=== PATIENT | male | born 1960 | race Two or more races ===

== ENCOUNTER 2020-02-29 08:23 | Outpatient (REF) | payer OTHER, SELFPAY ==
--- NOTE | 2020-02-29 08:31 | XR_ITS ---
EXAMINATION: XR SHOULDER, LEFT CLINICAL INFORMATION: Left shoulder pain. COMPARISON: None TECHNIQUE: AP external rotation, Grashey, scapular Y, and axillary views of the left shoulder. FINDINGS: There is no evidence of acute fracture or dislocation of the left shoulder. There is some mild spurring about the humeral head site of insertion of the supraspinatus tendon with question some degree of calcific tendinitis. Mild spurring about the glenohumeral joint present. No widening of the coracoid clavicular space is seen. There is minimal spurring of the acromioclavicular joint seen and no significant acromial spur is appreciated. XR/XR shoulder LT min 2V IMPRESSION: No significant acromial spur identified. Mild degenerative change as described.
== END 2020-02-29 08:24 | disposition home or self-care (01) ==
LOC: HO.XRAY 08:23
PROVIDERS: PCP Internal Medicine; Visit Provider Internal Medicine
DX: M25.512 Pain in left shoulder (principal)
CPT/HCPCS: 73030

== ENCOUNTER → 2020-03-23 10:26 | Outpatient (BNVA) | payer OTHER, SELFPAY | PROVIDERS: PCP Internal Medicine; Visit Provider Physician Assistant | DX: M75.42 Impingement syndrome of left shoulder (principal) | CPT/HCPCS: 20600; 20610; 99202; J1040 ==

== ENCOUNTER 2020-04-13 16:21 | Outpatient (REF) | payer OTHER, SELFPAY | END 2020-04-13 16:22 | disposition home or self-care (01) | LOC: HO.LAB 16:21 | PROVIDERS: Visit Provider Internal Medicine | DX: Z20.822 Contact with and (suspected) exposure to COVID-19 (principal) | CPT/HCPCS: 36415; C9803; U0003; U0005 ==

== ENCOUNTER 2020-04-15 18:41 | Outpatient (REF) | payer OTHER, SELFPAY ==
--- NOTE | ~2020-04-15 | MR_ITS ---
EXAMINATION: MR SHOULDER WITHOUT CONTRAST, LEFT CLINICAL INFORMATION: Patient reports left shoulder pain. COMPARISON: X-ray of the left shoulder February 29, 2020 TECHNIQUE: MRI of the left shoulder was performed without contrast and high field MRI scanner FINDINGS: There is a focal small intrasubstance longitudinal partial tear of the anterior supraspinatus tendon. The tear measures 9 mm transverse and 11 mm AP. See coronal image 11 series 6 and sagittal image 5 series 3. There is mild heterogeneity of the remaining tendon compatible with tendinosis and perhaps additional small areas of partial tearing but no additional measurable tendon defect. MUSCLE: Normal. The remaining rotator cuff muscles and tendons are normal. BICEPS: Intact. CORACOACROMIAL ARCH: There is [id number] hypertrophic osteoarthritis of the acromioclavicular joint. There is concavity of the undersurface of the acromion without subacromial spur. SUBACROMIAL SUBDELTOID BURSA: Normal. LABRUM/CAPSULE: Normal. ARTICULAR CARTILAGE/MARROW: The articular cartilage is normal. There is clustered enthesopathic cystic change in the greater tuberosity posteriorly. No joint effusion. MR/MR shoulder LT wo con IMPRESSION: 1. Small partial tear of the insertion of the anterior supraspinatus. Additional mild generalized abnormality in the supraspinatus compatible with tendinosis and/or additional small areas of partial tearing but no additional measurable defect. 2. [id number] arthrosis of the acromioclavicular joint.
== END 2020-04-15 18:42 | disposition home or self-care (01) ==
LOC: HO.MRI 18:41
PROVIDERS: Visit Provider Physician Assistant
DX: S46.009A Unspecified injury of muscle(s) and tendon(s) of the rotator cuff of unspecified shoulder, initial encounter (principal)
CPT/HCPCS: 73221

== ENCOUNTER → 2020-04-22 12:23 | Outpatient (BNVA) | payer OTHER, SELFPAY | PROVIDERS: PCP Internal Medicine; Visit Provider Physician Assistant | DX: M75.102 Unspecified rotator cuff tear or rupture of left shoulder, not specified as traumatic (principal); M12.812 Other specific arthropathies, not elsewhere classified, left shoulder | CPT/HCPCS: 99212 ==

== ENCOUNTER 2020-05-11 11:00 | Outpatient (RCR) | payer OTHER, SELFPAY ==
--- NOTE | 2020-05-05 13:57 | MHC.PT.DC ---
[facility] [place] Office [place] Office [place] Office [address] [place] [address] [phone] F: [phone] F: [phone] F: [phone] F: [phone] Physical Therapy Discharge Report Diagnosis: rotator cuff tear or rupture of L shoulder Date of Surgery: N/A Date of Evaluation: 05/05/20 Date of Discharge: Treatments to Date: 1 Cancellations to Date: 0 No Shows to Date: 0 Discharge Status: Discharge Summary: pt had poor tolerance of L cane AAROM and would benefit from towel slides instead as he had less pain. pt overall not very motivated for PT as he is looking for quick fix. Spent time educating pt that he does have a small tear and how his shoulder anatomy is going to affect his symptoms. He was told to avoid strenuous activity for now and to focus on only the exercises provided from PT. pt's skin grossly intact to light touch. pt was educated regarding purpose, wear, maintenance, and removal of ktape. Protocol is in chart. pt presents w/ MRI (+) for small tear of supraspinatus muscle. pt presents to physical therapy with pain, decreased range of motion, decreased strength, impaired functional mobility, and impaired postural awareness. pt is a good candidate for skilled PT due to age, potential remediation of impairments, typical disease/condition progression and prognosis, comorbidities, and motivation. pt would benefit from tailored strengthening and stretching exercise program, functional training, postural re-training, neuromuscular re-education, modalities as needed for pain, and equipment safety demonstration. Electronically signed by: Juana Diego PT, DPT Please sign and return to therapist. Thank you for your referral.
--- NOTE | 2020-05-11 11:23 | MHC.PT.DC ---
[facility] [place] Office [place] Office [place] Office [address] [place] 140 [facility] [phone] F: [phone] F: [phone] F: [phone] F: [phone] Physical Therapy Discharge Report Diagnosis: rotator cuff tear or rupture of L shoulder Date of Surgery: N/A Date of Evaluation: 05/05/20 Date of Discharge: 05/11/20 Treatments to Date: 2 Cancellations to Date: 0 No Shows to Date: 0 Discharge Status: Discharge Summary: The patient came in today and stated he is in too much pain and does not want to continue with physical therapy. He has only attended the evaluation and one treatment session. He currently wants to pursue surgery. I educated the patient to contact orthopedics to discuss he other potential pain management options. He is discharged from this physical therapy plan of care. Electronically signed by: Juana Diego PT, DPT Please sign and return to therapist. Thank you for your referral.
== END 2020-05-11 11:24 | disposition other institution (70) ==
LOC: HO.PT 11:00
PROVIDERS: PCP Internal Medicine; Visit Provider Physician Assistant
DX: M75.102 Unspecified rotator cuff tear or rupture of left shoulder, not specified as traumatic (principal); M12.812 Other specific arthropathies, not elsewhere classified, left shoulder
CPT/HCPCS: 97110; 97140; 97161

== ENCOUNTER → 2020-05-20 09:55 | Outpatient (BNVA) | payer OTHER, SELFPAY | PROVIDERS: PCP Internal Medicine; Visit Provider Physician Assistant | DX: M75.102 Unspecified rotator cuff tear or rupture of left shoulder, not specified as traumatic (principal); M12.812 Other specific arthropathies, not elsewhere classified, left shoulder | CPT/HCPCS: 99212 ==

== ENCOUNTER → 2020-05-31 12:45 | Outpatient (BNVA) | payer OTHER, SELFPAY | PROVIDERS: PCP Internal Medicine; Visit Provider Internal Medicine | DX: Z01.810 Encounter for preprocedural cardiovascular examination (principal); I25.10 Atherosclerotic heart disease of native coronary artery without angina pectoris; I10 Essential (primary) hypertension | CPT/HCPCS: 93005; 99202 ==

== ENCOUNTER 2020-06-15 08:10 | Day surgery (SDC) | payer OTHER, SELFPAY ==
[2020-06-09 14:13] VITALS: BMI 34.8
--- NOTE | 2020-06-14 10:12 | HO.ANESPROP2 ---
Documented by User: Nivia Jain 06/14/20 10:22 HPI - Anesthesia Eval Consult details Narrative: 60yo M for Left Shoulder Arthroscopy Cardiac cleared at [facility]. Continue ASA periop (stent) PMFSH Active Problems Active Problems: All Active Problems (Updated 06/09/20 @ 14:15 by Kat Saenz) Impingement syndrome, shoulder, left (Acute) Rotator cuff tear arthropathy of left shoulder (Acute) Preoperative cardiovascular examination (Acute) Essential hypertension (Acute) Atherosclerotic cardiovascular disease (Acute) Past Medical History Medical History (Updated 06/09/20 @ 14:15 by Kat Saenz) Atherosclerotic cardiovascular disease Essential hypertension Hx of retained foreign body fully removed Hypercholesteremia Hypertension Pre-diabetes Family History Family History (Updated 05/31/20 @ 13:10 by CONSTANCE Ramirez) Father History of heart disease Mother History of heart disease Surgical History Surgical History (Updated 06/09/20 @ 14:11 by Kat Saenz) H/O colonoscopy History of cardiac catheterization (~04/21/18) History of heart artery stent Hx of lymph node biopsy Social History Social History (Updated 05/31/20 @ 13:11 by CONSTANCE Ramirez) Smoking Status: Current every day smoker Packs Per Day: 0.5 Cigarettes Per Day: 6 Use of substances other than those prescribed or required for medical reasons: No Advance Directives: No Advance Directives Information Provided: Yes Current occupational status: unemployed Current occupation: Right Handed Meds Allergies Allergy/AdvReac Type Severity Reaction Status Date / Time Iodinated Contrast Media Allergy Mild HIVES Verified 06/09/20 14:12 [CONTRAST, IV] cimetidine AdvReac Intermediate VOMITING Verified 06/09/20 14:12 Home Medications Medication Instructions Recorded Confirmed Last Taken Type amlodipine 5 mg tablet 5 mg PO DAILY 05/31/20 06/09/20 06/15/20 History aspirin 81 mg tablet,delayed 81 mg PO DAILY 05/31/20 06/09/20 06/09/20 History release atorvastatin 80 mg tablet 80 mg PO DAILY 05/31/20 06/09/20 Unknown History lisinopril 10 mg tablet 10 mg PO DAILY 05/31/20 06/09/20 Unknown History metoprolol tartrate 50 mg tablet 50 mg PO BID 05/31/20 06/09/20 06/15/20 History Exam Exam Date and Time: June 14, 2020 1012 Height,Weight and Vital Signs: Height 5 ft 4 in Weight 92 kg Narrative Narrative: EKG 05/2020: sinus rhythm at 65/Min; nonspecific T-wave changes in the lateral leads. Cardiac catheterization 2019: 80% distal RCA stenosis that was inside the prior bare metal stent; status post stenting with PAU; nonobstructive disease in LAD and circumflex. Echocardiogram 2019: LVEF 60-65%; [id number] concentric left ventricular hypertrophy; mild mitral regurgitation; mild tricuspid regurgitation Assessment and Plan Assessment Anesthesia Assessment: Chart Reviewed Documented by User: Geovani Fuchs MD 06/15/20 09:43 PMFSH Past Medical History Medical History (Updated 06/09/20 @ 14:15 by Kat Saenz) Atherosclerotic cardiovascular disease Essential hypertension Hx of retained foreign body fully removed Hypercholesteremia Hypertension Pre-diabetes Family History Family History (Updated 05/31/20 @ 13:10 by CONSTANCE Ramirez) Father History of heart disease Mother History of heart disease Surgical History Surgical History (Updated 06/09/20 @ 14:11 by Kat Saenz) H/O colonoscopy History of cardiac catheterization (~04/21/18) History of heart artery stent Hx of lymph node biopsy Social History Social History (Updated 05/31/20 @ 13:11 by CONSTANCE Ramirez) Smoking Status: Current every day smoker Packs Per Day: 0.5 Cigarettes Per Day: 6 Use of substances other than those prescribed or required for medical reasons: No Advance Directives: No Advance Directives Information Provided: Yes Current occupational status: unemployed Current occupation: Right Handed Meds Allergies Allergy/AdvReac Type Severity Reaction Status Date / Time Iodinated Contrast Media Allergy Mild HIVES Verified 06/09/20 14:12 [CONTRAST, IV] cimetidine AdvReac Intermediate VOMITING Verified 06/09/20 14:12 Home Medications Medication Instructions Recorded Confirmed Last Taken Type amlodipine 5 mg tablet 5 mg PO DAILY 05/31/20 06/09/20 06/15/20 History aspirin 81 mg tablet,delayed 81 mg PO DAILY 05/31/20 06/09/20 06/09/20 History release atorvastatin 80 mg tablet 80 mg PO DAILY 05/31/20 06/09/20 Unknown History lisinopril 10 mg tablet 10 mg PO DAILY 05/31/20 06/09/20 Unknown History metoprolol tartrate 50 mg tablet 50 mg PO BID 05/31/20 06/09/20 06/15/20 History Exam Airway Mallampati Class: II TM Dist: >3cm Neck ROM: Full Loose/Missing/Broken Teeth: No Heart: RRR, sinus carlos, TWI Lungs: NL Assessment and Plan Assessment Anesthesia Assessment: Anesthesia Plan Discussed, Smoking Cess. Discussed and Chart Reviewed Final Anesthetic Review NPO: Yes ASA Class: III Final Preanesthetic Review: No Changes in Pt Med Stat, Meds/Allgs Chart Reviewed, Consent Obtained/Reviewed and Anes Risks/Benef Reviewed Patient Risk: High Procedure Risk: Intermediate Anesthetic Plan Anesthetic Plan: GA and Regional Block Disposition: Standard PACU
[2020-06-15] VITALS (15 sets, daily range): BP systolic 90–148; BP diastolic 63–86; PULSE 57–80; RESP 16–19; TEMP 36.3–36.6; O2SAT 92–98
[2020-06-15] MEDS: Albuterol Sulfate (0.083%) 2.5 MG/3 ML VIAL.NEB INHALE (15:47)
[2020-06-15] MEDS: oxyCODONE HCl Immed Release 5 MG TABLET PO (15:50)
--- NOTE | 2020-06-15 16:43 | PC.NURSE ---
1630 ANESTH CLEARED FOR DC PT MONITORS DCD IVF DCD EARLIER, PT DRESSED W RN ASST IN BS CHAIR, CONT W DC INSTRUCTIONS RE IMMOBILIZER, IV DCD.
--- NOTE | 2020-06-20 16:30 | PM.OP ---
Brief Operative Note Date of Service: 06/20/20 Pre-op diagnosis: left shoulder rtc tear left SLAP tear Post-op diagnosis: same Procedure: Left rtc repair left biceps tenotomy Implants: [employer]as [employer] nephew helacoil x2 Surgeon: Naeem Almonte MD Anesthesia: GETA and regional Estimated blood loss (mL): 5 IV fluids (mL): 800 Pathology: none sent Condition: stable Disposition: PACU
--- NOTE | 2020-06-20 16:33 | W.PM.OPN ---
Operative Note Operative Note Date of Service: 06/15/20 Narrative: Pre-op diagnosis: left shoulder rtc tear left SLAP tear Post-op diagnosis: same Procedure: Left rtc repair left biceps tenotomy Implants: [employer] nephew helacoil x2 Surgeon: Naeem Almonte MD Anesthesia: GETA and regional Estimated blood loss (mL): 5 IV fluids (mL): 800 Pathology: none sent Condition: stable Disposition: PACU Procedure in detail: Patient was brought to the operating room and placed the the beach chair position. All bony prominences were well padded and he was prepped and draped in standard sterile fashion. A time out was called to identify proper site, proper procedure and proper surgeon. IV antibiotics per weight were administered. I began by making a posterolateral stab incision with a 15 blade. A blunt trochar was placed into the glenohumeral joint and IO insufflated the joint with saline and a 30 degree arthroscope was placed. I established an outside- in anterior portal just distal to the biceps tendon. I then began my inspection of the glenohumeral joint. There was a small central glenoid cartilage wear and otherwsie no articular cartilage abnormalities. there was a Type 1 SLAP tear with 75 % of the biceps torn. This was tenotomized and the anterior labrum was debrided. There was undersurface fraying of the supraspinatus. I then removed the trochar and entered the subacromial space. A direct lateral portal was then established and I performed a bursectomy. The cuff was then examined. There was a high grade partial tear of the supraspinatus. This was taken down and there was a full-thickness tear of the supraspinatus. I used a shaver to debride this down to stable edges and then a bur to bur down the footprint. This was a small tear approximately 8 mm in diameter with no retraction. Therefore I placed a suture tape and 2 additional looped sutures through the cuff and reapproximated this to the footprint. I did use 2 anchors laterally to do this and had excellent reproduction of the normal anatomy. I then performed a 5 mm subacromial decompression and took my final pictures. I took the shoulder through range of motion was happy with the stability of the repair. There were no other abnormalities appreciable. I removed all instrumentation and closed the portals with nylon. Patient placed in sterile dressing extubated brought to recovery room in stable condition there were no known complications.
== END 2020-06-15 11:00 | disposition home or self-care (01) ==
PROVIDERS: PCP Internal Medicine; Visit Provider Orthopaedic Surgery
PROC: (CPT 29805; principal; 2020-06-15 10:40)
DX: M75.102 Unspecified rotator cuff tear or rupture of left shoulder, not specified as traumatic (principal); S43.432A Superior glenoid labrum lesion of left shoulder, initial encounter; I10 Essential (primary) hypertension; I25.10 Atherosclerotic heart disease of native coronary artery without angina pectoris; F17.200 Nicotine dependence, unspecified, uncomplicated; I25.2 Old myocardial infarction; Z79.82 Long term (current) use of aspirin; Z79.899 Other long term (current) drug therapy; Z95.5 Presence of coronary angioplasty implant and graft; X58.XXXA Exposure to other specified factors, initial encounter; Y93.9 Activity, unspecified; Y92.9 Unspecified place or not applicable; Y99.9 Unspecified external cause status
CPT/HCPCS: 29827; 29826; C1713; J0171; J0330; J0690; J1100; J2250; J2405; J3010

== ENCOUNTER → 2020-06-30 12:39 | Outpatient (BNVA) | payer OTHER, SELFPAY | PROVIDERS: PCP Internal Medicine; Visit Provider Physician Assistant | DX: M75.102 Unspecified rotator cuff tear or rupture of left shoulder, not specified as traumatic (principal); M12.812 Other specific arthropathies, not elsewhere classified, left shoulder; Z98.890 Other specified postprocedural states | CPT/HCPCS: 99212 ==

== ENCOUNTER → 2020-07-28 10:28 | Outpatient (BNVA) | payer OTHER, SELFPAY | PROVIDERS: PCP Internal Medicine; Visit Provider Physician Assistant | DX: Z47.89 Encounter for other orthopedic aftercare (principal) | CPT/HCPCS: 99212 ==

== ENCOUNTER → 2020-08-15 13:18 | Outpatient (BNVA) | payer OTHER, SELFPAY | PROVIDERS: PCP Internal Medicine; Visit Provider Physician Assistant | DX: Z98.890 Other specified postprocedural states (principal) | CPT/HCPCS: 99212 ==

== ENCOUNTER 2020-09-15 09:00 | Outpatient (RCR) | payer OTHER, SELFPAY ==
--- NOTE | 2020-07-12 16:09 | MHC.PT.EP ---
[facility] [place] Office [place] Office [place] Office [address] [place] [address] [phone] F: [phone] F: [phone] F: [phone] F: [phone] Physical Therapy Plan of Care Date of Evaluation: Date of Surgery: 06/15/20 Diagnosis: LEFT ROTATOR CUFF REPAIR Assessment: ANTONIA PRESENTS S/P RC REPAIR 06/15/20 AND NOW PRESENTS TO THERAPY FOR REHAB. UPON EXAM HE DEMONSTRATES THE EXPECTED IMPAIRMENTS OF DECREASED SHOULDER ROM AND STRENGTH, ALTERED POSTURE AND POSITIONING, DECREASED SOFT TISSUE MOBILITY, INCREASED EDEMA AND PAIN. FUNCTIONAL LIMITATIONS INCLUDE INABILITY TO PERFORM HOMEMAKING AND SELF CARE TASKS USING INVOLVED EXTREMITY, INABILITY TO PERFORM LIFTING REACHING AND CARRYING, DECREASED ABILITY TO PARTICIPATE IN RECREATIONAL AND FITNESS TASKS, DISRUPTED SLEEP Frequency and Duration: The patient will be seen 2XWEEK FOR 4 WEEKS Short Term Goals: INITIATE HEP AND DEMONSTRATE EVIDENCE OF LEARNING IN 2 VISITS Military Technician Goals: Full, pain free ROM in 8 weeks Full UE strength, pain free in 8 weeks To perform computer and work tasks without restriction and pain no greater than 2/[address] at minimum of 5# into cabinet at shoulder height in 5 weeks Treatment Plan: Modalities to reduce pain, spasms and effusion. Manual therapy to restore motion and function. Therapeutic exercise to improve strength and flexibility. Neuromuscular re-education for posture and balance. Therapeutic activities to return to functional activities of daily living. Electronically signed by: TONI PENA PT, DPT Please sign and return to therapist. Thank you for your referral.
--- NOTE | 2020-10-19 12:52 | MHC.PT.DC ---
[facility] [place] Office [place] Office [place] Office [address] [place] 140 [facility] [phone] F: [phone] F: [phone] F: [phone] F: [phone] Physical Therapy Discharge Report Diagnosis: LEFT ROTATOR CUFF REPAIR Date of Surgery: 06/15/20 Date of Evaluation: 07/12/20 Date of Discharge: 09/27/20 Treatments to Date: 17 Cancellations to Date: 0 No Shows to Date: 0 Discharge Status: Achieved Goals Improved Function Independent with HEP Discharge Summary: Logan has made excellent progress he was on hold until MD follow up and is DCed at this time. Electronically signed by: Kalyn Valle PT,DPT Please sign and return to therapist. Thank you for your referral.
== END 2020-10-19 12:54 | disposition home or self-care (01) ==
LOC: HO.PT 09:00
PROVIDERS: Visit Provider Physician Assistant
DX: M75.102 Unspecified rotator cuff tear or rupture of left shoulder, not specified as traumatic (principal); M12.812 Other specific arthropathies, not elsewhere classified, left shoulder
CPT/HCPCS: 97110; 97140; 97161; 97530

== ENCOUNTER → 2020-09-26 09:15 | Outpatient (BNVA) | payer OTHER, SELFPAY | PROVIDERS: Visit Provider Physician Assistant | DX: Z98.890 Other specified postprocedural states (principal) | CPT/HCPCS: 99212 ==

== ENCOUNTER → 2020-11-07 09:14 | Outpatient (BNVA) | payer OTHER, SELFPAY | PROVIDERS: Visit Provider Orthopaedic Surgery | DX: Z98.890 Other specified postprocedural states (principal) | CPT/HCPCS: 99212 ==

== ENCOUNTER 2021-01-05 10:47 | Outpatient (REF) | payer OTHER, SELFPAY ==
[2021-01-05 11:04] LABS: MANUAL DIFF FLAG NO
[2021-01-05 11:25] LABS: Basophils Percent Auto 0.3 % (0-2); Eosinophils Absolute Auto 0.2 X10*3/uL (0.0-0.4); Eosinophils Percent Auto 3.5 % (0-4); Hematocrit 42.5 % (42-52); Hemoglobin 14.8 g/dl (14.0-18.0); Imm Gran Abs Auto 0.03 X10*3/uL (0.00-0.03); Imm Gran Pct Auto 0.4 % (0.0-0.4); Lymphocytes Absolute Auto 2.6 X10*3/uL (1.2-4.9); Lymphocytes Percent Auto 37.9 % (20-40); Mean Corpuscular HGB Conc 34.8 g/dl (31.0-36.0); Mean Corpuscular Hemoglobin 34.4 pg (27.0-33.0); Mean Corpuscular Volume 98.8 fL (80-98); Mean Platelet Volume 9.7 fL (9.4-12.4); Monocytes Absolute Auto 0.6 X10*3/uL (0.1-1.2); Monocytes Percent Auto 8.3 % (2-11); Neutrophils Absolute Auto 3.4 X10*3/uL (2.0-8.3); Neutrophils Percent Auto 49.6 % (45-73); Platelet Count 275 X10*3/uL (160-400); Red Cell Distribution Width 13.8 % (11.0-16.0); White Blood Count 6.8 X10*3/uL (4.8-10.8)
[2021-01-05 12:15] LABS: Alanine Aminotransferase 26 U/L (0-40); Albumin Level 4.1 g/dL (3.5-5.0); Alkaline Phosphatase 109 U/L (39-117); Anion Gap 10 (12-20); Aspartate Amino Transferase 21 U/L (5-37); Bilirubin Total 0.3 mg/dL (0.0-1.0); Blood Urea Nitrogen 9 mg/dL (9-16); C Reactive Protein 0.34 mg/dL (< or = 0.50); Calcium 9.2 mg/dL (8.4-10.2); Carbon Dioxide 30 mmol/L (22-29); Chloride 108 mmol/L (96-108); Estimated Glomerular Filt Rate > 60; Glucose Random 131 mg/dL (60-115); Potassium 4.4 mmol/L (3.3-5.1); Sodium 144 mmol/L (135-145); Total Protein 7.1 g/dL (6.5-8.0); Uric Acid 7.8 mg/dL (3.4-7.0)
== END 2021-01-05 10:48 | disposition home or self-care (01) ==
LOC: HO.LAB 10:47
PROVIDERS: PCP Internal Medicine; Visit Provider Internal Medicine
DX: I10 Essential (primary) hypertension (principal); I25.10 Atherosclerotic heart disease of native coronary artery without angina pectoris; M10.9 Gout, unspecified
CPT/HCPCS: 36415; 80053; 84550; 85025; 86140

== ENCOUNTER 2021-03-24 08:59 | Outpatient (REF) | payer OTHER, SELFPAY ==
[2021-03-24 09:44] LABS: Binax Internal Control QC Valid; Binax Lot number: 9864; Binax Now Covid-19 Ag Negative (Negative)
== END 2021-03-24 09:00 | disposition home or self-care (01) ==
LOC: HO.LAB 08:59
PROVIDERS: Visit Provider Internal Medicine
DX: Z20.822 Contact with and (suspected) exposure to COVID-19 (principal)
CPT/HCPCS: C9803

== ENCOUNTER 2021-09-25 09:54 | Outpatient (REF) | payer OTHER, SELFPAY ==
[2021-09-25 11:02] LABS: MANUAL DIFF FLAG NO
[2021-09-25 11:07] LABS: Basophils Percent Auto 0.3 % (0-2); Eosinophils Absolute Auto 0.2 X10*3/uL (0.0-0.4); Eosinophils Percent Auto 1.7 % (0-4); Hematocrit 43.2 % (42.0-52.0); Hemoglobin 14.6 g/dl (14.0-18.0); Imm Gran Abs Auto 0.02 X10*3/uL (0.00-0.03); Imm Gran Pct Auto 0.2 % (0.0-0.4); Lymphocytes Absolute Auto 2.2 X10*3/uL (1.2-4.9); Lymphocytes Percent Auto 21.7 % (20-40); Mean Corpuscular HGB Conc 33.8 g/dl (31.0-36.0); Mean Corpuscular Volume 100.7 fL (80.0-98.0); Monocytes Absolute Auto 0.7 X10*3/uL (0.1-1.2); Neutrophils Absolute Auto 7.1 x10*3/uL (2.0-8.3); Neutrophils Percent Auto 69.1 % (45-73); Platelet Count 272 X10*3/uL (160-400); Red Blood Count 4.29 X10*6/uL (4.60-5.80); Red Cell Distribution Width 13.8 % (11.0-16.0); White Blood Count 10.3 X10*3/uL (4.8-10.8)
[2021-09-25 11:57] LABS: Alanine Aminotransferase 27 U/L (0-40); Albumin Level 4.3 g/dL (3.5-5.0); Alkaline Phosphatase 113 U/L (39-117); Anion Gap 13 (12-20); Aspartate Amino Transferase 19 U/L (5-37); Bilirubin Total 0.3 mg/dL (0.0-1.0); Blood Urea Nitrogen 9 mg/dL (9-16); C Reactive Protein 0.73 mg/dL (< or = 0.50); Calcium 9.4 mg/dL (8.4-10.2); Carbon Dioxide 28 mmol/L (22-29); Chloride 107 mmol/L (96-108); Estimated Glomerular Filt Rate > 60; Glucose Random 101 mg/dL (60-115); Iron 103 mcg/dL (45-160); Percent Iron Saturation 33 % (15-50); Potassium 4.9 mmol/L (3.3-5.1); Sodium 143 mmol/L (135-145); Total Iron Binding Capacity 314 mcg/dL (228-428); Total Protein 7.4 g/dL (6.5-8.0); Unsaturated Iron Binding 211 ug/dL
[2021-09-25 12:14] LABS: Uric Acid 8.3 mg/dL (3.4-7.0)
== END 2021-09-25 09:55 | disposition home or self-care (01) ==
LOC: HO.10HDL 09:54
PROVIDERS: Visit Provider Internal Medicine
DX: M10.9 Gout, unspecified (principal); I10 Essential (primary) hypertension; I25.10 Atherosclerotic heart disease of native coronary artery without angina pectoris; K62.5 Hemorrhage of anus and rectum
CPT/HCPCS: 36415; 80053; 83540; 84550; 85025; 86140

== ENCOUNTER 2021-11-06 10:39 | Outpatient (REF) | payer OTHER, SELFPAY ==
[2021-11-06 14:04] LABS: Anion Gap 15 (12-20); Blood Urea Nitrogen 8 mg/dL (9-16); C Reactive Protein 1.05 mg/dL (< or = 0.50); Calcium 9.6 mg/dL (8.4-10.2); Carbon Dioxide 26 mmol/L (22-29); Chloride 105 mmol/L (96-108); Estimated Glomerular Filt Rate > 60; Glucose Random 107 mg/dL (60-115); Potassium 4.6 mmol/L (3.3-5.1); Sodium 141 mmol/L (135-145); Uric Acid 7.4 mg/dL (3.4-7.0)
== END 2021-11-06 10:40 | disposition home or self-care (01) ==
LOC: HO.10HDL 10:39
PROVIDERS: Visit Provider Internal Medicine
DX: I10 Essential (primary) hypertension (principal); R60.0 Localized edema; M79.671 Pain in right foot
CPT/HCPCS: 36415; 80048; 84550; 86140

== ENCOUNTER → 2021-11-08 15:02 | Outpatient (BNVA) | payer OTHER, SELFPAY | PROVIDERS: PCP Internal Medicine; Visit Provider Surgery | DX: K64.9 Unspecified hemorrhoids (principal) | CPT/HCPCS: 46600; 99202 ==

== ENCOUNTER 2021-11-14 09:47 | Outpatient (REF) | payer OTHER, SELFPAY ==
--- NOTE | ~2021-11-14 | XR_ITS ---
EXAMINATION: BILATERAL FOOT X-RAY CLINICAL INFORMATION: Bilateral foot pain COMPARISON: Left foot x-ray July 2016 TECHNIQUE: 3 views of the right foot FINDINGS: Right: Bone alignment is normal. No fracture or dislocation is seen. There are small osteophytes at the first MTP joint. Joint spaces are otherwise normal. Soft tissues are normal. Left: There is mild hallux valgus deformity. Bone alignment is otherwise normal. No fracture or dislocation. Small osteophytes at the first MTP joint. Joint spaces are otherwise normal. There is soft tissue swelling adjacent to the first MTP joint. There is a small plantar calcaneal spur. XR/XR foot LT min 3V IMPRESSION: Right: Small osteophyte at the first MTP joint. Left: Mild hallux valgus deformity, arthritis and soft tissue swelling at the first MTP joint. Small plantar calcaneal spur.
--- NOTE | ~2021-11-14 | XR_ITS ---
EXAMINATION: BILATERAL FOOT X-RAY CLINICAL INFORMATION: Bilateral foot pain COMPARISON: Left foot x-ray July 2016 TECHNIQUE: 3 views of the right foot FINDINGS: Right: Bone alignment is normal. No fracture or dislocation is seen. There are small osteophytes at the first MTP joint. Joint spaces are otherwise normal. Soft tissues are normal. Left: There is mild hallux valgus deformity. Bone alignment is otherwise normal. No fracture or dislocation. Small osteophytes at the first MTP joint. Joint spaces are otherwise normal. There is soft tissue swelling adjacent to the first MTP joint. There is a small plantar calcaneal spur. XR/XR foot RT min 3V IMPRESSION: Right: Small osteophyte at the first MTP joint. Left: Mild hallux valgus deformity, arthritis and soft tissue swelling at the first MTP joint. Small plantar calcaneal spur.
== END 2021-11-14 09:48 | disposition home or self-care (01) ==
LOC: HO.XRAY 09:47
PROVIDERS: PCP Internal Medicine; Visit Provider Internal Medicine
DX: M79.671 Pain in right foot (principal); M79.672 Pain in left foot; I10 Essential (primary) hypertension
CPT/HCPCS: 73630

== ENCOUNTER 2021-12-01 08:42 | Day surgery (SDC) | payer OTHER, SELFPAY ==
[2021-11-28 16:34] VITALS: BMI 30.9
--- NOTE | 2021-11-30 09:28 | HO.ANESPROP2 ---
Documented by User: Nivia Jain NP 11/30/21 09:34 HPI - Anesthesia Eval Consult details Narrative: 61yo M for Hemorrhoidectomy, Exam Under Anesthesia stable at 08/2021 cardiac visit (CAD with hx stent) s/p rotator cuff repair 06/2020 with GA-ETT 8 PMFSH Active Problems Active Problems: All Active Problems (Updated 11/28/21 @ 16:36 by Moira Gonzalez, ASHLY) Impingement syndrome, shoulder, left (Acute) Rotator cuff tear arthropathy of left shoulder (Acute) Preoperative cardiovascular examination (Acute) S/P left rotator cuff repair (Acute) Bleeding hemorrhoids (Acute) Essential hypertension (Acute) Atherosclerotic cardiovascular disease (Acute) Past Medical History Medical History Atherosclerotic cardiovascular disease Bleeding hemorrhoids Essential hypertension Hx of retained foreign body fully removed Hypercholesteremia Hypertension ANETTE (obstructive sleep apnea) Pre-diabetes Family History Family History Father History of heart disease Mother History of heart disease Surgical History Surgical History H/O colonoscopy History of cardiac catheterization (~04/21/18) History of heart artery stent Hx of lymph node biopsy S/P right rotator cuff repair Social History Social History Are you a primary career development manager to a significant other at home: No Do you presently have visiting nurse or other home services: No Patient Tobacco Use Status: Current everyday Tobacco user Tobacco use type: Cigarette Cigarette Packs Per Day: 0.5 Cigarettes Per Day: 10 Use of substances other than those prescribed or required for medical reasons: No Have you been hit, kicked, punched, or otherwise hurt by someone within the past year? If so, by whom?: No Are you DNR?: No Advance Directives: No Advance Directives Information Provided: Yes Advance Directives on File: No Current occupational status: unemployed Current occupation: Right Handed Meds Allergies Allergy/AdvReac Type Severity Reaction Status Date / Time Iodinated Contrast Media Allergy Severe HIVES Verified 11/28/21 16:11 [CONTRAST, IV] cimetidine AdvReac Severe VOMITING, Verified 11/28/21 16:11 nausea Home Medications Medication Instructions Recorded Confirmed Last Taken Type amlodipine 5 mg tablet 5 mg PO DAILY 05/31/20 11/28/21 06/15/20 History atorvastatin 80 mg tablet 80 mg PO DAILY 05/31/20 11/28/21 Unknown History lisinopril 10 mg tablet 10 mg PO DAILY 05/31/20 11/28/21 Unknown History metoprolol tartrate 50 mg tablet 50 mg PO BID 05/31/20 11/28/21 06/15/20 History famotidine 20 mg tablet 20 mg PO BID 11/07/20 11/28/21 Unknown History Exam Exam Date and Time: November 30, [id number] Height,Weight and Vital Signs: Height 5 ft 4 in Weight 81.647 kg Pertinent Lab Results Pertinent Lab Results: Laboratory Tests 09/25/21 11/06/21 10:00 10:42 WBC 10.3 Hgb 14.6 Hct 43.2 Plt Count 272 Sodium 141 Potassium 4.6 Chloride 105 Carbon Dioxide 26 BUN 8 L Creatinine 0.99 Assessment and Plan Assessment Anesthesia Assessment: Chart Reviewed Documented by User: Renato Tan MD 12/01/21 10:34 PMFSH Past Medical History Medical History Atherosclerotic cardiovascular disease Bleeding hemorrhoids Essential hypertension Hx of retained foreign body fully removed Hypercholesteremia Hypertension ANETTE (obstructive sleep apnea) Pre-diabetes Family History Family History Father History of heart disease Mother History of heart disease Family history of problems with anesthesia: No Surgical History Surgical History H/O colonoscopy History of cardiac catheterization (~04/21/18) History of heart artery stent Hx of lymph node biopsy S/P right rotator cuff repair History of Problems with Anesthesia: No Social History Social History Are you a primary career development manager to a significant other at home: No Do you presently have visiting nurse or other home services: No Patient Tobacco Use Status: Current everyday Tobacco user Tobacco use type: Cigarette Cigarette Packs Per Day: 0.5 Cigarettes Per Day: 10 Use of substances other than those prescribed or required for medical reasons: No Have you been hit, kicked, punched, or otherwise hurt by someone within the past year? If so, by whom?: No Are you DNR?: No Advance Directives: No Advance Directives Information Provided: Yes Advance Directives on File: No Current occupational status: unemployed Current occupation: Right Handed Meds Allergies Allergy/AdvReac Type Severity Reaction Status Date / Time Iodinated Contrast Media Allergy Severe HIVES Verified 11/28/21 16:11 [CONTRAST, IV] cimetidine AdvReac Severe VOMITING, Verified 11/28/21 16:11 nausea Home Medications Medication Instructions Recorded Confirmed Last Taken Type amlodipine 5 mg tablet 5 mg PO DAILY 05/31/20 11/28/21 06/15/20 History atorvastatin 80 mg tablet 80 mg PO DAILY 05/31/20 11/28/21 Unknown History lisinopril 10 mg tablet 10 mg PO DAILY 05/31/20 11/28/21 Unknown History metoprolol tartrate 50 mg tablet 50 mg PO BID 05/31/20 11/28/21 06/15/20 History famotidine 20 mg tablet 20 mg PO BID 11/07/20 11/28/21 Unknown History Exam Airway Mallampati Class: I TM Dist: <=3cm Loose/Missing/Broken Teeth: No Heart: ok Lungs: ok Assessment and Plan Final Anesthetic Review Family History of Problems with Anesthesia: No History of Problems with Anesthesia: No NPO: Yes ASA Class: III Final Preanesthetic Review: No Changes in Pt Med Stat, Meds/Allgs Chart Reviewed, Consent Obtained/Reviewed and Anes Risks/Benef Reviewed Patient Risk: Intermediate Procedure Risk: Intermediate Anesthetic Plan Anesthetic Plan: GA and Agree w/ Assess. and Plan Disposition: Standard PACU
[2021-12-01] VITALS (9 sets, daily range): BP systolic 125–145; BP diastolic 74–98; PULSE 55–63; RESP 14–16; TEMP 36.4–36.6; O2SAT 94–97
--- NOTE | 2021-12-01 | ECG_ITS ---
Test Reason : cad, s/p stent Blood Pressure : / mmHG Vent. Rate : 058 BPM Atrial Rate : 058 BPM P-R Int : 160 ms QRS Dur : 120 ms QT Int : 428 ms P-R-T Axes : 030 019 -07 degrees QTc Int : 420 ms Sinus bradycardia Minimal voltage criteria for LVH, may be normal variant ( [place] product ) Inferior infarct (cited on or before 09-DEC-2006) Abnormal ECG When compared with ECG of 19-APR-2018 21:06, ST no longer elevated in Inferior leads Heart rate has decreased Referred By: Nivia Jain Electronically Signed By:WILBERT MARX
[2021-12-01] MEDS: Lactated Ringers 1,000 ML 100 ML IVCONT (09:21)
--- NOTE | 2021-12-01 09:57 | MHC.SHP ---
Pre-Procedural Eval Section A Date of Service: 12/01/21 The patient is an INPATIENT: No Changes since office visit: No Cold of Flu in the past 2 weeks, No New Medical Problems, No Changes in Medication and No Patient answered all questions The History & Physical has been completed within 30 days and I have reviewed it.: Yes Section B Chief Complaint: hemorrhoids Allergies: Allergies Allergy/AdvReac Type Severity Reaction Status Date / Time Iodinated Contrast Media Allergy Severe HIVES Verified 11/28/21 16:11 [CONTRAST, IV] cimetidine AdvReac Severe VOMITING, Verified 11/28/21 16:11 nausea Plan I have reviewed the history and physical and performed a pertinent physical examination on my patient. No changes have occurred unless specified.
--- NOTE | 2021-12-01 11:15 | P.OP_ITS ---
Operative Note Operative Note Date of Service: 12/01/21 Narrative: Preop diagnosis: Internal and external hemorrhoids with frequent bleeding Postop diagnosis: The same Procedure: Exam under anesthesia, hemorrhoidectomy x2 columns Surgeon: Nicho Garcia MD The patient is a 61-year-old male who has had a significant history of hemorrhoidal bleeding. He was noted to have size hemorrhoids on the left and right side. He wanted to proceed with hemorrhoidectomy. He understood shazia hnique of hemorrhoidectomy as well as the risks, benefits, and alternatives He was brought to the operating room and placed in prone bethanie-knife position under general anesthesia via endotracheal tube. The buttocks were retracted with wide tape laterally. The perianal area was prepped and draped in the usual sterile fashion. A surgical time-out was done. The patient received Cefotan 2 g IV preoperatively Examination of the anal orifice revealed external hemorrhoids on both the left and right side. There were smaller hemorrhoidal columns anteriorly. I inserted abuse Haas retractor. I examined the anal canal circumferentially. these hemorrhoidal columns was seen as a mix of both internal external. There were no other lesions seen. Applied a Edwards grasper at the large hemor rhoidal column on the left to retract this. I made a figure of 8 stitch at the pedicle using chromic 3-0. I made an incision around this hemorrhoidal column to the perianal skin using blade 15. I excised this hemorrhoidal column above the plane of sphincters along this incision using Metzenbaum scissors. I closed this incision with a running chromic 3-0 stitch with additional hemostatic sutures being placed Procedure was duplicated on the hemorrhoidal column on the right. Again this was retracted with a Edwards grasper. I made a figure of 8 stitch at the pedicle with a chromic 3-0 and made an incision around this column to the perianal skin using blade 15. I excised this hemorrhoidal column above the plane of sphincters using scissors. I closed this hemorrhoidal column with a running chromic 3-0 stitch. Once hemostasis was ensured, I proceeded to then infiltrated the perianal area with Marcaine 0.5% for postop analgesia. The procedure was completed . The patient tolerated procedure well. There were no immediate complications. Initial and final counts of sponges and instruments were correct. Estimated blood loss about 20 cc The patient was extubated without difficulty and transferred to the recovery room with stable vital signs.
[2021-12-01] MEDS: fentaNYL citrate/PF 100 MCG/2 ML VIAL 50 MCG IVPUSH ×4 (11:32→11:52)
[2021-12-01] MEDS: oxyCODONE HCl Immed Release 5 MG TABLET 10 MG PO (11:32)
[2021-12-01] MEDS: Acetaminophen 325 MG TABLET 650 MG PO (11:35)
[2021-12-01] MEDS: ondansetron HCL 4 MG/2 ML VIAL IVPUSH (11:57)
== END 2021-12-01 13:00 | disposition home or self-care (01) ==
PROVIDERS: PCP Internal Medicine; Visit Provider Surgery
PROC: (CPT 46260; principal; 2021-12-01 10:40)
DX: K64.8 Other hemorrhoids (principal); K64.4 Residual hemorrhoidal skin tags; I10 Essential (primary) hypertension; I25.10 Atherosclerotic heart disease of native coronary artery without angina pectoris; Z98.61 Coronary angioplasty status; E78.00 Pure hypercholesterolemia, unspecified; G47.33 Obstructive sleep apnea (adult) (pediatric); R73.03 Prediabetes; Z79.82 Long term (current) use of aspirin; Z79.899 Other long term (current) drug therapy; Z88.8 Allergy status to other drugs, medicaments and biological substances; Z91.041 Radiographic dye allergy status; F17.210 Nicotine dependence, cigarettes, uncomplicated
CPT/HCPCS: 46260; 88304; 93005; J2405; J2795; J3010

== ENCOUNTER 2021-12-25 08:59 | Outpatient (REF) | payer OTHER, SELFPAY ==
[2021-12-25 09:28] LABS: COVID-19 Test Positive (Negative)
== END 2021-12-25 09:00 | disposition home or self-care (01) ==
LOC: HO.LAB 08:59
PROVIDERS: Visit Provider Internal Medicine
DX: Z20.822 Contact with and (suspected) exposure to COVID-19 (principal)
CPT/HCPCS: 87635; C9803

== ENCOUNTER 2022-03-20 15:52 | Outpatient (REF) | payer OTHER, SELFPAY ==
[2022-03-20 16:03] LABS: MANUAL DIFF FLAG NO
[2022-03-20 16:47] LABS: Basophils Percent Auto 0.4 % (0-2); Eosinophils Absolute Auto 0.2 X10*3/uL (0.0-0.4); Eosinophils Percent Auto 2.6 % (0-4); Hematocrit 43.2 % (42.0-52.0); Hemoglobin 14.8 g/dl (14.0-18.0); Imm Gran Abs Auto 0.02 X10*3/uL (0.00-0.03); Imm Gran Pct Auto 0.3 % (0.0-0.4); Lymphocytes Absolute Auto 3.2 X10*3/uL (1.2-4.9); Lymphocytes Percent Auto 43.4 % (20-40); Mean Corpuscular HGB Conc 34.3 g/dl (31.0-36.0); Mean Corpuscular Hemoglobin 33.6 pg (27.0-33.0); Monocytes Absolute Auto 0.7 X10*3/uL (0.1-1.2); Neutrophils Absolute Auto 3.2 x10*3/uL (2.0-8.3); Neutrophils Percent Auto 43.3 % (45-73); Platelet Count 246 X10*3/uL (160-400); Red Blood Count 4.41 X10*6/uL (4.60-5.80); White Blood Count 7.3 X10*3/uL (4.8-10.8)
[2022-03-20 17:40] LABS: Alanine Aminotransferase 35 U/L (0-40); Albumin Level 4.4 g/dL (3.5-5.0); Alkaline Phosphatase 98 U/L (39-117); Anion Gap 11 (12-20); Aspartate Amino Transferase 23 U/L (5-37); Bilirubin Total 0.4 mg/dL (0.0-1.0); Blood Urea Nitrogen 12 mg/dL (9-16); C Reactive Protein 0.11 mg/dL (< or = 0.50); Calcium 9.7 mg/dL (8.4-10.2); Carbon Dioxide 28 mmol/L (22-29); Chloride 108 mmol/L (96-108); Estimated Glomerular Filt Rate > 60; Glucose Random 89 mg/dL (60-115); Lipase 35 U/L (8-78); Potassium 4.3 mmol/L (3.3-5.1); Sodium 143 mmol/L (135-145); Total Protein 7.4 g/dL (6.5-8.0)
[2022-03-20 18:01] LABS: Appearance Urine Clear; Color Urine Yellow; Glucose Urine UA Negative (Negative); Leukocyte Esterase Urine Negative (Negative); Nitrite Urine Negative (Negative); PH 5.5 (5.0-9.0); Urine Blood Negative (Negative); Urine Ketones Negative (Negative); Urine Protein Negative (Neg-Trace)
== END 2022-03-20 15:53 | disposition home or self-care (01) ==
LOC: HO.LAB 15:52
PROVIDERS: PCP Internal Medicine; Visit Provider Internal Medicine
DX: I25.10 Atherosclerotic heart disease of native coronary artery without angina pectoris (principal); I10 Essential (primary) hypertension; R14.0 Abdominal distension (gaseous)
CPT/HCPCS: 36415; 80053; 81003; 82550; 83690; 85025; 86140

== ENCOUNTER → 2022-03-28 14:04 | Outpatient (BNVA) | payer OTHER, SELFPAY | PROVIDERS: PCP Internal Medicine; Visit Provider Surgery | DX: K64.8 Other hemorrhoids (principal) | CPT/HCPCS: 46600; 99212 ==

== ENCOUNTER 2022-04-20 13:28 | Outpatient (REF) | payer OTHER, SELFPAY ==
--- NOTE | ~2022-04-20 | CT_ITS ---
EXAMINATION: CT CHEST SCREENING CLINICAL INFORMATION: 62-year-old current smoker with 46 pack year history of smoking. COMPARISON: None. TECHNIQUE: Multidetector volumetric CT imaging of the chest is performed without contrast using low dose technique. Additional 2D coronal and sagittal reformatted images and axial 3D maximum intensity projection (MIP) images are generated on the CT workstation. This CT examination was performed using dose optimization techniques as appropriate, variously including the following: *Automated exposure control *Adjustment of mA and/or kV according to patient size (this includes techniques or standardized protocols for targeted exams where dose is matched to indication/reason for exam; i.e. extremities or head) *Use of iterative reconstruction technique DLP: 55 mGy-cm. FINDINGS: There is breathing artifact present somewhat degrading study. LUNGS: Central airways are patent. No confluent parenchymal disease is seen. There is mild bronchial wall thickening seen bilaterally. No bronchiectasis is noted. A bleb is seen within the right apex. There are mild changes of centrilobular emphysema within the upper lobes. Sub-4 mm densities are present. There are discoid regions of atelectasis or scarring seen within the left middle lobe. There is a small region of groundglass opacity within the left lower lobe adjacent to the inferior aspect of the major fissure. There is a faintly seen region of ground-glass opacity with adjacent calcification within the subpleural location right lower lobe on image [address] series #4. This may be related to breathing artifact. It measures approximately 8 mm in diameter. MEDIASTINUM: The heart is mildly enlarged. No pericardial effusion is seen. Minor coronary artery calcification is seen as well as what appears to be a coronary artery stent. No thoracic aortic aneurysm. No hilar or mediastinal lymphadenopathy. Visualized thyroid gland unremarkable. CORONARY ARTERY CALCIFICATION: Minimal calcified plaque. Coronary artery stent. PLEURA: There is no pleural effusion. No pleural mass or thickening. AXILLA: No lymphadenopathy. UPPER ABDOMEN: Unremarkable OSSEOUS STRUCTURES: Unremarkable. CT/CT lung screening IMPRESSION: Mild changes of centrilobular emphysema. A few small regions of ground-glass opacity with a few densities as described above likely related to small densities with motion artifact. One of these densities measures approximately 7 mm in diameter. ASSESSMENT: Lung-RADS category 3: Probably benign. RECOMMENDATION: Short interval 6 month followup low dose CT chest.
== END 2022-04-20 13:29 | disposition home or self-care (01) ==
LOC: HO.CT 13:28
PROVIDERS: PCP Internal Medicine; Visit Provider Physician Assistant Medical
DX: Z12.2 Encounter for screening for malignant neoplasm of respiratory organs (principal); F17.210 Nicotine dependence, cigarettes, uncomplicated
CPT/HCPCS: 71271; G0296

== ENCOUNTER 2022-06-05 06:19 | Outpatient (REF) | payer OTHER, SELFPAY ==
[2022-06-05 09:32] LABS: Alanine Aminotransferase 28 U/L (0-40); Aspartate Amino Transferase 24 U/L (5-37); Cholesterol 250 mg/dL; HDL Cholesterol 37 mg/dL; LDL Cholesterol Calculated 156 mg/dl; Triglycerides 285 mg/dL
== END 2022-06-05 06:20 | disposition home or self-care (01) ==
LOC: HO.LAB 06:19
PROVIDERS: PCP Internal Medicine; Visit Provider Internal Medicine Cardiovascular Disease
DX: E78.5 Hyperlipidemia, unspecified (principal)
CPT/HCPCS: 36415; 80061; 84450; 84460

== ENCOUNTER 2022-10-31 07:06 | Outpatient (REF) | payer OTHER, SELFPAY ==
--- NOTE | ~2022-10-31 | CT_ITS ---
EXAMINATION: CT CHEST SCREENING CLINICAL INFORMATION: Six-month follow up low-dose CT scan for GGO with adjacent calcification within subpleural right lower lobe measuring 8 mm on prior study. [id number] history of smoking. Current smoker. COMPARISON: 04/20/2022 TECHNIQUE: Multidetector volumetric CT imaging of the chest is performed without contrast using low dose technique. Additional 2D coronal and sagittal reformatted images and axial 3D maximum intensity projection (MIP) images are generated on the CT workstation. This CT examination was performed using dose optimization techniques as appropriate, variously including the following: *Automated exposure control *Adjustment of mA and/or kV according to patient size (this includes techniques or standardized protocols for targeted exams where dose is matched to indication/reason for exam; i.e. extremities or head) *Use of iterative reconstruction technique DLP: 47 mGy-cm FINDINGS: LUNGS: Central airways are patent. There is bronchial wall thickening seen bilaterally most prominent within the lower lobes. No bronchiectasis is appreciated. There are mild changes of centrilobular emphysema within the upper lobes. A few scattered blebs are present. There are bilateral scattered regions of ground-glass opacity without focal semisolid lesion being seen. There are multiple scattered sub-4 mm densities seen. Calcified granuloma seen within the right lower lobe. There are regions of density seen adjacent to the anterior aspect of the left major fissure and medial lingula adjacent to the pericardium likely related to atelectasis or scarring. This was present on prior study. MEDIASTINUM: Heart mildly enlarged. No pericardial effusion. Mild coronary artery calcification seen. Coronary artery stent in place. No thoracic aortic aneurysm. No mediastinal or hilar lymphadenopathy. No definite thyroid abnormality is seen. CORONARY ARTERY CALCIFICATION: Mild present. PLEURA: There is no pleural effusion. No pleural mass or thickening. AXILLA: No lymphadenopathy. UPPER ABDOMEN: Unremarkable. OSSEOUS STRUCTURES: No significant abnormality appreciated. CT/CT lung screen follow up IMPRESSION: No suspicious lung mass identified. Previously noted question focal ground-glass opacity with calcification is not differentiated out from scattered regions of hazy density diffusely and more prominent within the lower lobes. This may be related to some degree of atelectasis or small airways disease with air trapping with the bronchial wall thickening noted. ASSESSMENT: Lung-RADS category 2: Benign RECOMMENDATION: Routine annual low-dose CT screening in 12 months.
== END 2022-10-31 07:07 | disposition home or self-care (01) ==
LOC: HO.CT 07:06
PROVIDERS: PCP Internal Medicine; Visit Provider Physician Assistant Medical
DX: Z12.2 Encounter for screening for malignant neoplasm of respiratory organs (principal); F17.210 Nicotine dependence, cigarettes, uncomplicated
CPT/HCPCS: 71250

== ENCOUNTER 2023-02-11 11:41 | Outpatient (REF) | payer OTHER, SELFPAY ==
--- NOTE | ~2023-02-11 | XR_ITS ---
EXAMINATION: XR WRIST, RIGHT CLINICAL INFORMATION: Pain. COMPARISON: Radiographs dated 09/15/2018. TECHNIQUE: PA, lateral, and oblique views of the right wrist. FINDINGS: Bony alignment and mineralization are normal. There is a neutral ulnar variance. The proximal and distal carpal rows are intact. No fracture or dislocation is seen. There are subchondral cysts noted within the lunate, which may result from ulnar impaction. There is no focal soft tissue swelling, gas or foreign body. XR/XR wrist RT min 3V IMPRESSION: 1. No fracture or dislocation is seen. 2. There are subchondral cysts noted within the lunate, which may result from ulnar impaction.
[2023-02-11 12:30] LABS: MANUAL DIFF FLAG NO
[2023-02-11 12:46] LABS: Basophils Percent Auto 0.4 % (0-2); Eosinophils Absolute Auto 0.3 X10*3/uL (0.0-0.4); Eosinophils Percent Auto 3.7 % (0-4); Hematocrit 45.3 % (42.0-52.0); Hemoglobin 15.6 g/dl (14.0-18.0); Imm Gran Abs Auto 0.02 X10*3/uL (0.00-0.03); Imm Gran Pct Auto 0.3 % (0.0-0.4); Lymphocytes Absolute Auto 2.6 X10*3/uL (1.2-4.9); Lymphocytes Percent Auto 35.2 % (20-40); Mean Corpuscular HGB Conc 34.4 g/dl (31.0-36.0); Mean Corpuscular Hemoglobin 34.6 pg (27.0-33.0); Mean Corpuscular Volume 100.4 fL (80.0-98.0); Mean Platelet Volume 10.1 fL (9.4-12.4); Monocytes Absolute Auto 0.6 X10*3/uL (0.1-1.2); Monocytes Percent Auto 7.9 % (2-11); Neutrophils Absolute Auto 3.9 x10*3/uL (2.0-8.3); Neutrophils Percent Auto 52.5 % (45-73); Platelet Count 249 X10*3/uL (160-400); Red Blood Count 4.51 X10*6/uL (4.60-5.80); Red Cell Distribution Width 13.1 % (11.0-16.0); White Blood Count 7.5 X10*3/uL (4.8-10.8)
[2023-02-11 13:10] LABS: Alanine Aminotransferase 27 U/L (0-40); Albumin Level 4.3 g/dL (3.5-5.0); Alkaline Phosphatase 98 U/L (39-117); Anion Gap 13 (12-20); Aspartate Amino Transferase 19 U/L (5-37); Bilirubin Total 0.3 mg/dL (0.0-1.0); Blood Urea Nitrogen 10 mg/dL (9-16); C Reactive Protein 0.16 mg/dL (< or = 0.50); Calcium 9.8 mg/dL (8.4-10.2); Carbon Dioxide 28 mmol/L (22-29); Chloride 106 mmol/L (96-108); Estimated Glomerular Filt Rate > 60; Glucose Random 105 mg/dL (60-115); Potassium 4.4 mmol/L (3.3-5.1); Sodium 143 mmol/L (135-145); Total Protein 7.7 g/dL (6.5-8.0); Uric Acid 7.7 mg/dL (3.4-7.0)
== END 2023-02-11 11:42 | disposition home or self-care (01) ==
LOC: HO.XRAY 11:41
PROVIDERS: PCP Internal Medicine; Visit Provider Internal Medicine
DX: M25.531 Pain in right wrist (principal); I10 Essential (primary) hypertension; I25.10 Atherosclerotic heart disease of native coronary artery without angina pectoris; E78.00 Pure hypercholesterolemia, unspecified; M10.9 Gout, unspecified
CPT/HCPCS: 36415; 73110; 80053; 84550; 85025; 86140

== ENCOUNTER 2023-04-15 14:31 | Outpatient (REF) | payer OTHER, SELFPAY ==
[2023-04-15 14:42] LABS: MANUAL DIFF FLAG NO
[2023-04-15 15:19] LABS: Basophils Absolute Auto 0.1 X10*3/uL (0.0-0.2); Basophils Percent Auto 0.6 % (0-2); Eosinophils Absolute Auto 0.5 X10*3/uL (0.0-0.4); Hematocrit 41.5 % (42.0-52.0); Hemoglobin 14.4 g/dl (14.0-18.0); Imm Gran Abs Auto 0.01 X10*3/uL (0.00-0.03); Imm Gran Pct Auto 0.1 % (0.0-0.4); Lymphocytes Absolute Auto 3.3 X10*3/uL (1.2-4.9); Mean Corpuscular HGB Conc 34.7 g/dl (31.0-36.0); Mean Corpuscular Volume 98.1 fL (80.0-98.0); Mean Platelet Volume 10.1 fL (9.4-12.4); Monocytes Absolute Auto 0.8 X10*3/uL (0.1-1.2); Monocytes Percent Auto 9.7 % (2-11); Neutrophils Absolute Auto 3.5 x10*3/uL (2.0-8.3); Neutrophils Percent Auto 43.6 % (45-73); Platelet Count 259 X10*3/uL (160-400); Red Blood Count 4.23 X10*6/uL (4.60-5.80); Red Cell Distribution Width 13.6 % (11.0-16.0); White Blood Count 8.1 X10*3/uL (4.8-10.8)
[2023-04-15 15:20] LABS: Appearance Urine Clear; Color Urine Yellow; Glucose Urine UA Negative (Negative); Leukocyte Esterase Urine Negative (Negative); Nitrite Urine Negative (Negative); Urine Blood Negative (Negative); Urine Ketones Negative (Negative); Urine Protein Negative (Neg-Trace)
[2023-04-15 16:09] LABS: Alanine Aminotransferase 27 U/L (0-40); Albumin Level 4.2 g/dL (3.5-5.0); Alkaline Phosphatase 108 U/L (39-117); Anion Gap 9 (12-20); Aspartate Amino Transferase 19 U/L (5-37); Bilirubin Total 0.3 mg/dL (0.0-1.0); Blood Urea Nitrogen 10 mg/dL (9-16); C Reactive Protein 0.13 mg/dL (< or = 0.50); Calcium 9.5 mg/dL (8.4-10.2); Carbon Dioxide 29 mmol/L (22-29); Chloride 109 mmol/L (96-108); Estimated Glomerular Filt Rate 51; Glucose Random 92 mg/dL (60-115); Lipase 25 U/L (8-78); Potassium 3.9 mmol/L (3.3-5.1); Sodium 143 mmol/L (135-145); Total Protein 7.5 g/dL (6.5-8.0)
== END 2023-04-15 14:32 | disposition home or self-care (01) ==
LOC: HO.LAB 14:31
PROVIDERS: PCP Internal Medicine; Visit Provider Internal Medicine
DX: R14.0 Abdominal distension (gaseous) (principal); I10 Essential (primary) hypertension
CPT/HCPCS: 36415; 80053; 81003; 83690; 85025; 86140

== ENCOUNTER 2023-04-16 19:01 | Emergency (ER) | payer OTHER, SELFPAY ==
--- NOTE | ~2023-04-16 | XR_ITS ---
EXAMINATION: XR CHEST CLINICAL INFORMATION: Chest pain COMPARISON: Previous chest x-ray February 2014 TECHNIQUE: 2 views of the chest were obtained. FINDINGS: The cardiac and mediastinal contours are normal. The lungs are clear. No pleural effusion or pneumothorax. Degenerative changes to the spine. Postsurgical changes to the left shoulder. XR/XR chest 2V IMPRESSION: No evidence for acute disease in the chest.
--- NOTE | 2023-04-16 19:18 | ECG_ITS ---
Test Reason : chest pain Blood Pressure : / mmHG Vent. Rate : 058 BPM Atrial Rate : 058 BPM P-R Int : 162 ms QRS Dur : 112 ms QT Int : 400 ms P-R-T Axes : 037 032 -24 degrees QTc Int : 392 ms Sinus bradycardia Minimal criteria for Left ventricular hypertrophy ; possible normal variant Inferior infarct , age undetermined Abnormal ECG No significant changes when compared with the previous EKG of 01 dec 2021. Referred By: Ashlyn Oshea Electronically Signed By:LADONNA ISABEL
[2023-04-16 19:35] VITALS: BP 203/105; PULSE 62; RESP 18; TEMP 36.6; O2SAT 95; BMI 33.4
--- NOTE | 2023-04-16 19:35 | ED.CHESTPAIN ---
HPI - Chest Pain General Chief Complaint: Chest Pain Stated Complaint: chest pain Time Seen by Provider: 04/17/23 01:19 History of Present Illness HPI narrative: The patient is a 63-year-old male with a history of coronary disease. He says that he has 2 stents. He believes his last stent was placed approximately 5 or 6 years ago. This evening the patient had 2 episodes of intense chest pain. The episodes were intense but very brief. They lasted less than 30 seconds. He was not that concerned after the 1st episode but after the 2nd episode he decided he should come to the emergency room to get his heart checked. He is currently since breath. No diaphoresis. No nausea or vomiting. He may have felt short of breath during the episodes but not otherwise. No cough. No fever, sweats, chills. No abdominal pain. No pain or swelling in his legs. Related Data Home Medications Medication Instructions Recorded Confirmed amlodipine 5 mg tablet 5 mg PO DAILY 05/31/20 03/28/22 atorvastatin 80 mg tablet 80 mg PO DAILY 05/31/20 03/28/22 lisinopril 10 mg tablet 10 mg PO DAILY 05/31/20 03/28/22 metoprolol tartrate 50 mg tablet 50 mg PO BID 05/31/20 03/28/22 famotidine 20 mg tablet 20 mg PO BID 11/07/20 03/28/22 Previous Rx's Medication Instructions Recorded ibuprofen 600 mg tablet 600 mg PO Q6H PRN pain #30 tabs 12/01/21 Allergies Allergy/AdvReac Type Severity Reaction Status Date / Time Iodinated Contrast Media Allergy Severe HIVES Verified 03/28/22 14:25 [CONTRAST, IV] cimetidine AdvReac Severe VOMITING, Verified 03/28/22 14:25 nausea Review of Systems Review of Systems: Yes all other systems are reviewed and are negative FOR[facility]LY [facility] Past Medical History Medical History (Updated 04/18/23 @ 00:01 by Marilynn Kay) Nicotine dependence, cigarettes, uncomplicated GERD (gastroesophageal reflux disease) ANETTE (obstructive sleep apnea) Essential hypertension Atherosclerotic cardiovascular disease Pre-diabetes Hypercholesteremia Hypertension Surgical History (Updated 04/17/22 @ 12:08 by Dominga Apple PA-C) History of left inguinal hernia repair History of retained foreign body fully removed History of repair of right rotator cuff History of colonoscopy History of lymph node biopsy History of hemorrhoidectomy History of heart artery stent Family History Family History Father History of heart disease Mother History of heart disease Social History Social History (Updated 04/20/22 @ 13:29 by Dominga Apple PA-C) Are you a primary patient care associate to a significant other at home: No Do you presently have visiting nurse or other home services: No Alcohol intake: current Alcohol intake frequency: holidays/special occasions only Patient Tobacco Use Status: Current everyday Tobacco user Tobacco use type: Cigarette Cigarette Packs Per Day: 0.5 Years Smoked: (onset 17yo, 1/2ppd x 45yrs, 20pyh) Smoked in Last 30 Days: Yes Use of substances other than those prescribed or required for medical reasons: No Advance Directives: No Advance Directives Information Provided: No Current occupational status: unemployed Current occupation: Right Handed Physical Exam Vital Signs: Vital Signs: Last Vital Signs Temp 97.8 F 04/17/23 01:27 Pulse 49 L 04/17/23 03:41 Resp 18 04/17/23 03:41 BP 164/89 H 04/17/23 03:41 Pulse Ox 97 04/17/23 03:41 O2 Del Method Room Air 04/17/23 03:41 BMI result Body Mass Index 33.4 Const: Other: The patient is awake, alert, pleasant, cooperative. Does not appear in distress. HEENT: Other: The face is symmetrical. ?Mucous membranes moist. Eyes: Other: Pupils are round equal, conjunctivae are clear, extraocular movements intact Neck: Other: No JVD Resp: Effort & Inspection: normal respiratory effort Auscultation: clear to auscultation bilaterally Cardio: Rate: regular rate Rhythm: regular rhythm Heart sounds: S1 normal heart sound present and S2 normal heart sound present GI: Other: Abdomen is soft and nontender Skin: Other: Skin is warm and dry Neuro: Other: Awake, alert, pleasant, cooperative. Cranial nerves grossly intact. Moving all extremities normally and appropriately. Grossly neurologically intact. Extrem: Other: No calf swelling or tenderness, no calf asymmetry, no peripheral edema Course Course Course Narrative: This is a rapid medical exam. Deferred additional HPI, ROS, PE to primary provider. 63 yo male with history of CAD with stents, HTN here with complaints of intermittent chest pain since yesterday. Will need labs, EKG, CXR VSS Medical Decision Making Medical Decision Making [facility] [place] Narrative: The patient is a 63-year-old man with a history of coronary disease with 2 coronary stents. He had two very brief episodes of chest discomfort today. These episodes do not really sound anginal. His EKG shows no significant changes from previous. His troponins are flat. Other labs unremarkable. He looks well. My suspicion for dangerous process is very low. He will be discharged to continue his current medications and to return to the emergency room if feels worse. Lab Data 04/16/23 20:15 04/16/23 20:15 Labs: Lab Results 04/16/23 04/17/23 Range/Units 20:15 02:33 WBC 7.8 (4.8-10.8) X10*3/uL RBC 4.27 L (4.60-5.80) X10*6/uL Hgb 14.8 (14.0-18.0) g/dl Hct 42.1 (42.0-52.0) % MCV 98.6 H (80.0-98.0) fL MCH 34.7 H (27.0-33.0) pg MCHC 35.2 (31.0-36.0) g/dl RDW 13.4 (11.0-16.0) % Plt Count 252 (160-400) X10*3/uL MPV 9.8 (9.4-12.4) fL Immature Gran % (Auto) 0.3 (0.0-0.4) % Neut % (Auto) 45.6 (45-73) % Lymph % (Auto) 39.9 (20-40) % [place] % (Auto) 8.6 (2-11) % Eos % (Auto) 5.3 H (0-4) % Baso % (Auto) 0.3 (0-2) % Lymph # (Auto) 3.1 (1.2-4.9) X10*3/uL [place] # (Auto) 0.7 (0.1-1.2) X10*3/uL Eos # (Auto) 0.4 (0.0-0.4) X10*3/uL Baso # (Auto) 0.0 (0.0-0.2) X10*3/uL Abs Immat Gran (auto) 0.02 (0.00-0.03) X10*3/uL Absolute Neuts (auto) 3.6 (2.0-8.3) x10*3/uL Absolute Nucleated RBC 0.000 (0.0-0.012) X10*3/uL Nucleated RBC % (auto) 0.0 (0.0-0.2) /100WBC PT 11.4 (11.1-13.3) SEC INR 0.9 (0.9-1.1) Sodium 141 (135-145) mmol/L Potassium 3.7 (3.3-5.1) mmol/L Chloride 106 (96-108) mmol/L Carbon Dioxide 26 (22-29) mmol/L Anion Gap 13 (12-20) BUN 10 (9-16) mg/dL Creatinine 1.38 (0.5-1.4) mg/dL Estim Creat Clear Calc 55.6 Estimated GFR 52 Random Glucose 121 H (60-115) mg/dL Calcium 9.6 (8.4-10.2) mg/dL Total Bilirubin 0.3 (0.0-1.0) mg/dL Direct Bilirubin 0.1 (0.0-0.5) mg/dL AST 20 (5-37) U/L ALT 25 (0-40) U/L Alkaline Phosphatase 105 (39-117) U/L Troponin I High Sens 2.8 3.9 (<3.5-35.0) ng/L Total Protein 7.7 (6.5-8.0) g/dL Albumin 4.4 (3.5-5.0) g/dL Independent Interpretation I performed an independent interpretation of an: EKG Interpretation: EKG at 19:25 shows sinus bradycardia 58 beats per minute. No change from previous EKGs. Discharge Plan Discharge Clinical Impression: Chest pain Patient Disposition: Home, Self-Care Additional Instructions: Your testing in the emergency room today is very reassuring. I do not think these episodes you experienced are likely to represent the warning of a new heart attack. Please continue your regular medications. Please follow-up soon with your regular doctor or with your pulmonary nurse practitioner for a 2nd opinion. Return to the emergency room if worse Prescriptions: No Action ibuprofen 600 mg tablet 600 mg PO Q6H PRN (Reason: pain) Qty: 30 0RF atorvastatin 80 mg tablet 80 mg PO DAILY lisinopril 10 mg tablet 10 mg PO DAILY amlodipine 5 mg tablet 5 mg PO DAILY metoprolol tartrate 50 mg tablet 50 mg PO BID famotidine 20 mg tablet 20 mg PO BID Referrals: Nicho Gordillo MD [Primary Care Provider] - (Chest pain) Edwin Nina MD [Physician] - (chest pain, history of CAD and stents) Interventions: ED Discharge Assessment Last Done: 04/17/23 03:45 Discharge Date/Time: 04/17/23 03:46
[2023-04-16 20:37] LABS: MANUAL DIFF FLAG NO
[2023-04-16 20:43] LABS: Basophils Percent Auto 0.3 % (0-2); Eosinophils Absolute Auto 0.4 X10*3/uL (0.0-0.4); Eosinophils Percent Auto 5.3 % (0-4); Hematocrit 42.1 % (42.0-52.0); Hemoglobin 14.8 g/dl (14.0-18.0); Imm Gran Abs Auto 0.02 X10*3/uL (0.00-0.03); Imm Gran Pct Auto 0.3 % (0.0-0.4); Lymphocytes Absolute Auto 3.1 X10*3/uL (1.2-4.9); Lymphocytes Percent Auto 39.9 % (20-40); Mean Corpuscular HGB Conc 35.2 g/dl (31.0-36.0); Mean Corpuscular Hemoglobin 34.7 pg (27.0-33.0); Mean Corpuscular Volume 98.6 fL (80.0-98.0); Mean Platelet Volume 9.8 fL (9.4-12.4); Monocytes Absolute Auto 0.7 X10*3/uL (0.1-1.2); Monocytes Percent Auto 8.6 % (2-11); Neutrophils Absolute Auto 3.6 x10*3/uL (2.0-8.3); Neutrophils Percent Auto 45.6 % (45-73); Platelet Count 252 X10*3/uL (160-400); Red Blood Count 4.27 X10*6/uL (4.60-5.80); Red Cell Distribution Width 13.4 % (11.0-16.0); White Blood Count 7.8 X10*3/uL (4.8-10.8)
[2023-04-16 20:57] LABS: Alanine Aminotransferase 25 U/L (0-40); Albumin Level 4.4 g/dL (3.5-5.0); Alkaline Phosphatase 105 U/L (39-117); Anion Gap 13 (12-20); Aspartate Amino Transferase 20 U/L (5-37); Bilirubin Direct 0.1 mg/dL (0.0-0.5); Bilirubin Total 0.3 mg/dL (0.0-1.0); Blood Urea Nitrogen 10 mg/dL (9-16); Calcium 9.6 mg/dL (8.4-10.2); Carbon Dioxide 26 mmol/L (22-29); Chloride 106 mmol/L (96-108); Creatinine Clr Calc Pharmacy 55.6; Estimated Glomerular Filt Rate 52; Glucose Random 121 mg/dL (60-115); Potassium 3.7 mmol/L (3.3-5.1); Sodium 141 mmol/L (135-145); Total Protein 7.7 g/dL (6.5-8.0)
[2023-04-16 21:05] LABS: Troponin-I High Sensitivity 2.8 ng/L (<3.5-35.0)
[2023-04-16 21:36] LABS: INTERNATIONAL NORM RATIO 0.9 (0.9-1.1); Prothrombin Time 11.4 SEC (11.1-13.3)
[2023-04-17 01:27] VITALS: BP 188/94; PULSE 51; RESP 19; TEMP 36.6; O2SAT 98
[2023-04-17 02:00] VITALS: PULSE 59
[2023-04-17 02:59] LABS: Troponin-I High Sensitivity 3.9 ng/L (<3.5-35.0)
[2023-04-17 03:41] VITALS: BP 164/89; PULSE 49; RESP 18; O2SAT 97
== END 2023-04-17 03:46 | disposition home or self-care (01) ==
PROVIDERS: Nurse Practitioner Family; Emergency Provider Emergency Medicine; PCP Internal Medicine
DX: R07.9 Chest pain, unspecified (principal); I25.10 Atherosclerotic heart disease of native coronary artery without angina pectoris; I10 Essential (primary) hypertension; Z95.9 Presence of cardiac and vascular implant and graft, unspecified
CPT/HCPCS: 36415; 71046; 80048; 80076; 84484; 85025; 85610; 93005; 99283; 99285

== ENCOUNTER → 2023-04-16 19:18 | Outpatient (BNV) | payer OTHER, SELFPAY | PROVIDERS: Emergency Provider Emergency Medicine; PCP Internal Medicine; Visit Provider Internal Medicine | DX: R00.1 Bradycardia, unspecified (principal); R94.31 Abnormal electrocardiogram [ECG] [EKG] | CPT/HCPCS: 93010 ==

== ENCOUNTER 2023-04-19 09:59 | Outpatient (REF) | payer OTHER, SELFPAY ==
--- NOTE | ~2023-04-19 | US_ITS ---
EXAMINATION: US ABDOMEN COMPLETE CLINICAL INFORMATION: Gaseous abdominal distention and bloating. COMPARISON: None available. TECHNIQUE: Real-time imaging of the abdominal viscera. FINDINGS: PANCREAS: Normal. ABDOMINAL AORTA: The proximal, mid, and distal segments are normal in caliber. INFERIOR VENA CAVA: Visualized portions are normal. LIVER: Normal. The liver is normal in size. The liver contour is normal. Parenchymal echogenicity is normal. No focal hepatic lesion. There is no intrahepatic biliary duct dilatation seen. GALLBLADDER: Normal. The gallbladder is physiologically distended without evidence of stones, sludge, polyps, wall thickening or pericholecystic fluid. COMMON BILE DUCT: Normal in caliber measuring 0.3 cm in diameter. RIGHT KIDNEY: Normal. No hydronephrosis. No renal calculi or focal parenchymal lesions. The kidney measures 10.3 cm in maximum dimension. LEFT KIDNEY: Likely benign centimeter renal cyst in the left lower pole with a mural calcification, no follow up imaging is recommended. No hydronephrosis or focal parenchymal lesions. The kidney measures 10.9 cm in maximum dimension. SPLEEN: The spleen measures 11.1 cm in maximum dimension. FREE FLUID: None. US/US abdomen complete IMPRESSION: Unremarkable abdominal ultrasound.
== END 2023-04-19 10:00 | disposition home or self-care (01) ==
LOC: HO.HMGCX 09:59
PROVIDERS: PCP Internal Medicine; Visit Provider Internal Medicine
DX: R14.0 Abdominal distension (gaseous) (principal)
CPT/HCPCS: 76700

== ENCOUNTER 2023-04-30 13:36 | Outpatient (AMB) | payer OTHER, SELFPAY ==
--- NOTE | 2023-04-30 13:54 | MHC.OFFVIS ---
Intake Vital Signs 04/30/23 13:55 Height 5 ft 4 in Weight 194 lb 0.108 oz BMI 33.3 BP 130/74 Blood Pressure Location Lt brachial Position Sitting Pulse 71 Pulse Source Pulse Oximeter Intake Visit Reasons: HMC/chest pain/2-6 Intake Note: pt its here for HMC/CHest pain/ pt states that he feels his heart raise at all times different times of the day. Supervisor Travel Trailer Required: No Accompanied by: Self / Same As Patient Allergies Iodinated Contrast Media [CONTRAST, IV] Allergy (Severe, Verified 03/28/22 14:25) HIVES cimetidine Adverse Reaction (Severe, Verified 03/28/22 14:25) VOMITING, nausea Medication List - Last Reconciled 04/30/23 by Leigh Le NP amlodipine 5 mg PO DAILY famotidine 20 mg PO BID ibuprofen 600 mg PO Q6H PRN lisinopril 10 mg PO DAILY metoprolol tartrate 50 mg PO BID HPI HPI Comments History of Present Illness Details 63-year-old male presnets today for a follow-up on chest discomforts. He states he started to feel his heart race and felt like flips and felt a pressure in his chest. It occurs at random at rest and with activities. He has a history of stents and ANETTE without CPAP use. First was in around 2007 and then had in-stent restenosis of distal RCA. He denies dizziness, shortness of breath, swelling, or orthopnea. 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 [facility] Medical History Nicotine dependence, cigarettes, uncomplicated GERD (gastroesophageal reflux disease) ANETTE (obstructive sleep apnea) Essential hypertension Atherosclerotic cardiovascular disease Pre-diabetes Hypercholesteremia Hypertension Surgical History History of left inguinal hernia repair History of retained foreign body fully removed History of repair of right rotator cuff History of colonoscopy History of lymph node biopsy History of hemorrhoidectomy History of heart artery stent Family History Father History of heart disease Mother History of heart disease Social History Are you a primary out of school hours care worker to a significant other at home: No Do you presently have visiting nurse or other home services: No Alcohol intake: current Alcohol intake frequency: holidays/special occasions only Patient Tobacco Use Status: Current everyday Tobacco user Tobacco use type: Cigarette Cigarette Packs Per Day: 0.5 Years Smoked: (onset 17yo, 1/2ppd x 45yrs, 20pyh) Current occupational status: unemployed Current occupation: Right Handed Review of Systems Const Denies chills, Denies fatigue, Denies fever(s), Denies frequent falls, Denies weakness, Denies weight gain and Denies weight loss ENT Denies dizziness Card Denies chest pain, Denies leg edema, Denies lightheadedness, Denies palpitations, Denies dyspnea and Denies dyspnea on exertion Resp Denies cough, Denies dyspnea and Denies dyspnea on exertion GI Denies hematochezia Musc Denies abnormal gait, Denies muscle weakness, Denies numbness, Denies radiating pain into limb and Denies tingling Neuro Denies abnormal gait, Denies dizziness, Denies frequent falls, Denies numbness, Denies tingling and Denies weakness Endo Denies fatigue and Denies palpitations Physical Exam Vital Signs: Last Vital Signs Pulse 71 04/30/23 13:55 BP 130/74 04/30/23 13:55 BMI result Body Mass Index 33.3 Const General: healthy appearing and no acute distress Orientation/consciousness: patient oriented x3 HEENT Head: Yes normal to inspection Eyes General: appearance normal, both eyes and all related structures Neck Neck: Yes normal visual inspection Chest Chest palpation & inspection: normal inspection of the chest Resp Effort & Inspection: normal respiratory effort Auscultation: clear to auscultation bilaterally Cardio Jugular venous distension: no JVD Palpation: normal PMI Rate: regular rate Rhythm: regular rhythm Heart sounds: S1 normal heart sound present, S2 normal heart sound present, no click, no gallops, no murmurs and no rubs GI Inspection: Yes normal to inspection Palpation (GI): Soft to palpation Skin General skin exam: no rashes or lesions noted Neuro General: patient oriented x3 Extrem General: Yes normal to inspection Psych Appearance: grossly normal Assessment & Plan Assessment & Plan (1) Chest pain: Code(s): R07.9 - Chest pain, unspecified (2) Atherosclerotic cardiovascular disease: Code(s): I25.10 - Atherosclerotic heart disease of [place] coronary artery without angina pectoris (3) Essential hypertension: Code(s): I10 - Essential (primary) hypertension Plan Blood pressure today at goal. Due to history of stent and in-stent stenosis, cigarette use, and HTN will get a stress test with nuclear imaging to assess for ischemia. Will get echocardiogram to assess for structural changes. ED care for symptoms if needed. Follow-up after testing. Orders: Orders CA stress test 04/30/23 R07.9 - Chest pain, unspecified CA echo transthoracic complete 04/30/23 I10 - Essential (primary) hypertension, I25.10 - Atherosclerotic heart disease of [place] coronary artery without angina pectoris NM cardiolite stress test 04/30/23 R07.9 - Chest pain, unspecified Coding Level of Care Code Est Pt Level 3 (08656) Diagnoses Chest pain R07.9 Atherosclerotic cardiovascular disease I25.10 Essential hypertension I10
[2023-04-30 13:55] VITALS: BP 130/74; PULSE 71; BMI 33.3
== END 2023-04-30 15:35 | disposition home or self-care (01) ==
PROVIDERS: PCP Internal Medicine; Visit Provider Nurse Practitioner
DX: R07.9 Chest pain, unspecified (principal); I25.10 Atherosclerotic heart disease of native coronary artery without angina pectoris; I10 Essential (primary) hypertension
CPT/HCPCS: 99213

== ENCOUNTER → 2023-04-30 13:36 | Outpatient (BNVA) | payer OTHER, SELFPAY | PROVIDERS: PCP Internal Medicine; Visit Provider Nurse Practitioner | DX: R07.9 Chest pain, unspecified (principal); I25.10 Atherosclerotic heart disease of native coronary artery without angina pectoris; I10 Essential (primary) hypertension | CPT/HCPCS: 99212 ==

== ENCOUNTER → 2023-05-21 15:33 | Outpatient (REF) | payer OTHER, SELFPAY ==
--- NOTE | 2023-05-21 15:39 | CA_ITS ---
Transthoracic Echocardiogram Patient (Last, First, Middle): Logan Segovia A Gender: Male Date of : 1960 Age: 63 Procedure Date: 05/21/2023 Procedure Type: Transthoracic Echocardiogram Location: OP Height: 162.56 cm Weight: 86.18 kg BSA: 1.91 m2 Heart Rate: bpm BP: 128 / 80 mmHg Ed Tech: CHAD Referring MD: Leigh Le NP Deckhand Engineer: Jez Hernandez MD Symptoms: I25.10 - Atherosclerotic heart disease of [place] coronary artery without... Study Quality: Adequate ECG Rhythm: Sinus Conclusions: - 1. Normal LV systolic function with moderate LVH with impaired relaxation filling pattern 2. Mildly dilated left atrium 3. Mild mitral regurgitation 4. No gross pericardial effusion Findings Left Ventricle Normal left ventricular size and systolic function. There is severely increased left ventricular wall thickness. The visually estimated ejection fraction is between 60-65%. Spectral Doppler is indicative of an impaired relaxation filling pattern. E/E prime ratio is between 8 and 15 consistent with indeterminate filling pressures. Right Ventricle Normal right ventricular cavity size and systolic function. Atria Both atria are normal in size. There is no evidence of interatrial shunt. Aortic Valve Normal aortic valve structure and function. There is no aortic valve stenosis. There is no aortic valve regurgitation. Mitral Valve There is mild anterior and posterior mitral leaflet thickening. There is mild posterior mitral leaflet prolapse. There is mild mitral valve regurgitation. There is no mitral valve stenosis. Pulmonic Valve The pulmonic valve is likely normal. There is trace to mild pulmonic valve regurgitation. Tricuspid Valve Likely normal tricuspid valve structure and function. Tricuspid regurgitation envelope is inadequate for calculation of right ventricular systolic pressure. Normal right atrial pressure. Great Vessels All visible segments of the aorta are normal in size. The pulmonary artery was not well visualized. Venous The inferior vena cava is normal in size and collapses greater than 50% with inspiration. Pericardium/Pleural There is no evidence of pericardial effusion. Prior Study Comparison No significant change compared to prior study dated: 08/20/2017. Measurements 2D Linear Measurements IVSd: 1.41 0.6-0.9/0.6-1.0 cm LVIDd: 4.61 3.9-5.3/4.2-5.9 cm LVIDd Index: 2.41 2.4-3.2/2.2-3.1 cm/m2 LVIDs: 2.72 2.0-3.6 cm LVPWd: 1.39 0.7-1.1 cm Ao Root: 3.40 2.1-3.5 cm LA Diam: 3.90 2.7-3.8/3.0-4.0 cm LAIDs Index: 2.04 1.5-2.3 cm/m2 LV Mass: 321.25 67-162/88-224 g LV Mass Index: 168.20 43-95/49-115 g/m2 LVOT Diam: 2.30 3.0+(-)1.3 cm Mitral Valve MV Pk E: 0.55 MV PK A: 0.67 MV Decel Time: 144.00 E/A: 0.80 E'Lateral: 6.09 E'Medial: 4.13 E/E' Med: 13.30 E/E' Lat: 9.00 PHT: 42.00 MVA PHT: 5.24 Decel Steele: 3.80 Aortic Valve AoV Pk Dar: 1.49 AoV Mn Dar: 1.04 AoV VTI: 0.29 AoV Pk Grad: 9.00 Aov Mn Grad: 5.00 MARISSA Cont.VTI: 2.71 LVOT LVOT Pk Dar: 1.09 LVOT Mn Dar: 0.69 LVOT VTI: 0.19 LVOT Pk Grad: 5.00 LVOT Mn Grad: 2.00 LVOT Diam: 2.30 LVOT Area: 4.15 Diastolic Function MV Pk E: 0.55 MV Pk A: 0.67 E/A: 0.80 E'Medial: 4.13 E/E' Med: 13.30 E' Laterial: 6.09 E/E' Lat: 9.00 Right Ventricle TAPSE (mm): 27.00 TVS' Dar: 16.00 Tricuspid Valve TR Pk Dar: 2.14 TR Pk Grad: 18.00 RA Press: 3.00 Great Vessels Aorta Ao Root-2D: 3.40 2.0-3.7 cm Ao Asc: 3.40 2.1-3.4 cm Pulmonary Valve PV Pk Dar: 1.19 Peak PV Grad: 6.00 Updated in Other Vendor System with Status of Final Jez Hernandez MD electronically signed on 05/22/2023 4:22:44 PM with status of Final
== END ==
LOC: HO.CARD 15:33
PROVIDERS: PCP Internal Medicine; Visit Provider Nurse Practitioner
DX: I25.10 Atherosclerotic heart disease of native coronary artery without angina pectoris (principal); I10 Essential (primary) hypertension
CPT/HCPCS: 93306

== ENCOUNTER → 2023-05-21 15:39 | Outpatient (BNV) | payer OTHER, SELFPAY | PROVIDERS: PCP Internal Medicine; Visit Provider Internal Medicine Cardiovascular Disease | DX: I25.10 Atherosclerotic heart disease of native coronary artery without angina pectoris (principal); I34.0 Nonrheumatic mitral (valve) insufficiency | CPT/HCPCS: 93306 ==

== ENCOUNTER → 2023-06-05 08:05 | Outpatient (REF) | payer OTHER, SELFPAY ==
--- NOTE | ~2023-06-05 | NM_ITS ---
Myocardial perfusion study Indication: Chest pain to evaluate for myocardial ischemia Technique: The patient was brought in for a Lexiscan perfusion study on 06/05/2023. Patient performed low-level exercise and was injected 0.4 mg of Lexiscan intravenously. Within a minute of injection, 30 mCi of sestamibi was given intravenously. Images were obtained using the SPECT gamma camera interlaced with the gating device. Images were obtained in supine position. Resting perfusion study was performed on 06/06/2023. Patient was administered 30 mCi of sestamibi intravenously at rest. Images were then obtained in supine position. Images obtained with and without CT attenuation. Total DLP 125 mGy-cm. Images were processed with the software and compared side to side in short axis, horizontal long axis and vertical long axis views. Findings: The stress perfusion study showed non attenuated images show mildly reduced uptake in the lateral wall of the LV myocardium with mildly reduced uptake in the apex of the LV myocardium. Attenuation corrected images also show mildly reduced uptake in the lateral wall and the apex of the LV myocardium.. The gated study shows normal LV systolic function with calculated LVEF of greater than 55%. LV cavity is normal in size. The gated study shows normal systolic wall thickening and contraction of segments. Resting study shows both attenuated as well as non attenuated corrected images show improved uptake in the lateral wall of the LV myocardium.. Gating at rest reveals normal systolic wall motion with ejection fraction at greater than 55%. The findings are consistent with mild intensity lateral wall ischemia. NM/NM cardiolite stress test Impression: 1. Myocardial perfusion imaging study shows mild intensity lateral wall ischemia in circumflex distribution 2. Gated LVEF is greater than 55% 3. Transient ischemic dilatation not present EKG is nondiagnostic for ischemia
--- NOTE | 2023-06-05 08:08 | CA_ITS ---
Acquisition Time: 2023-06-05 08:21:30 Total Exercise Time: 00:04:44 Test Indications: CP Medications: SEE H Protocol: TENISHA Max HR: 117 BPM 74% of Pred: 158 BPM Max BP: 184/110 mmHG Max Work Load: 6.6 METS Exercise stress test exercise 4 min 44 sec of Tenisha protocol achieving 69% MPHR, with moderate SOB and request to stop, no chest discomfort, without arrhythmias, with HTN response to exercise, with nondiagnoisitic EKGs. Once blood pressure and breathing returned to baseline test changed to pharmacoliglcal stress test. Pharmacological stress test with Lexiscan injection, while sitting and kicking his legs, without SOB, with 5/10 chest and back discomfort, with isolated PVC, with normotensive response to injection, with nondiagnoisitic EKGs. Aminophylline 75mg IVP given to reverse Lexiscan. Chest pain resolved to 0/10. Nuclear images pending. Test reviewed with Dr. Milan. Referred By: Leigh Le Overread By: Leigh Le
== END ==
LOC: HO.CARD 08:05
PROVIDERS: PCP Internal Medicine; Visit Provider Nurse Practitioner
DX: R07.9 Chest pain, unspecified (principal)
CPT/HCPCS: 78452; 93017; A9500; J0280; J2785

== ENCOUNTER → 2023-06-05 08:08 | Outpatient (BNV) | payer OTHER, SELFPAY | PROVIDERS: PCP Internal Medicine; Visit Provider Nurse Practitioner | DX: R07.9 Chest pain, unspecified (principal) | CPT/HCPCS: 78452; 93016; 93018 ==

== ENCOUNTER 2023-06-13 08:50 | Outpatient (AMB) | payer OTHER, SELFPAY ==
--- NOTE | 2023-06-13 09:03 | MHC.OFFVIS ---
Intake Vital Signs 06/13/23 09:08 Height 5 ft 4 in Weight 197 lb BMI 33.8 Intake Visit Reasons: Rectal bleeding Intake Note: This patient presents for an assessment for rectal bleeding. Patient c/o; reports abdominal pain, reports bloating after meals, reports occasional rectal bleeding with bowel movements, reports last colonoscopy was 2018 with . Mirror Machine Feeder Required: No Accompanied by: Self / Same As Patient Allergies Iodinated Contrast Media [CONTRAST, IV] Allergy (Severe, Verified 06/13/23 09:10) HIVES cimetidine Adverse Reaction (Severe, Verified 06/13/23 09:10) VOMITING, nausea Medication List - Last Reconciled 06/13/23 by Nicho Garcia MD amlodipine 5 mg PO DAILY atorvastatin 80 mg PO DAILY famotidine 20 mg PO BID ibuprofen 600 mg PO Q6H PRN lisinopril 10 mg PO DAILY metoprolol tartrate 50 mg PO BID HPI Rectal bleeding HPI Details He is here because of what he describes as abdominal complaints. He is describes frequent bloating especially after meals. He is known to me because of hemorrhoidectomy in 2021. He continues to have passage of bright blood per rectum on and off. He says he does not have any pain with bowel movements in the rectum. He says that he does not think that he has problems with his hemorrhoids at this time. [facility] Medical History (Updated 06/13/23 @ 09:37 by Nicho Garcia MD) Abdominal bloating Nicotine dependence, cigarettes, uncomplicated GERD (gastroesophageal reflux disease) ANETTE (obstructive sleep apnea) Essential hypertension Atherosclerotic cardiovascular disease Pre-diabetes Hypercholesteremia Hypertension Surgical History History of left inguinal hernia repair History of retained foreign body fully removed History of repair of right rotator cuff History of colonoscopy History of lymph node biopsy History of hemorrhoidectomy History of heart artery stent Family History Father History of heart disease Mother History of heart disease Social History Are you a primary insurance healthcare representative to a significant other at home: No Do you presently have visiting nurse or other home services: No Alcohol intake: current Alcohol intake frequency: holidays/special occasions only Patient Tobacco Use Status: Current everyday Tobacco user Tobacco use type: Cigarette Cigarette Packs Per Day: 0.5 Years Smoked: (onset 17yo, 1/2ppd x 45yrs, 20pyh) Current occupational status: unemployed Current occupation: Right Handed Review of Systems Const Denies chills and Denies fever(s) Card Denies chest pain, Denies dyspnea and Denies dyspnea on exertion Resp Denies cough, Denies dyspnea and Denies dyspnea on exertion GI Reports hematochezia and Denies change in bowel habits Denies hematuria and Denies difficulty urinating Musc Denies back pain and Denies limited range of motion Neuro Denies focal weakness and Denies convulsions Psych Denies depression and Denies mood swings Physical Exam Vital Signs: BMI result Body Mass Index 33.8 Const General: comfortable and no acute distress Orientation/consciousness: patient oriented x3 Neck Neck: Yes no lymphadenopathy Resp Auscultation: clear to auscultation bilaterally Cardio Rhythm: regular rhythm GI Other: Refusing rectal exam today Palpation (GI): Soft to palpation, nontender and no guarding Neuro General: patient oriented x3 Assessment & Plan Assessment & Plan (1) Abdominal bloating: Code(s): R14.0 - Abdominal distension (gaseous) Plan: He says he has frequent abdominal bloating and this is what bothers him most. He says that he has passage of bright blood per rectum periodically with bowel movements but he has had this for a long time even after hemorrhoidectomy He feels that he is due for a colonoscopy. He says that he had a polyp removed in the past. He wants to be seen by a blocker metal base here in [place]. I will therefore arrange for a consult with the GI service here in [facility]. Coding Level of Care Code Est Pt Level 3 (93688) Diagnoses Abdominal bloating R14.0
[2023-06-13 09:08] VITALS: BMI 33.8
== END 2023-06-13 09:34 | disposition home or self-care (01) ==
PROVIDERS: PCP Internal Medicine; Visit Provider Surgery
DX: R14.0 Abdominal distension (gaseous) (principal)
CPT/HCPCS: 99213

== ENCOUNTER → 2023-06-13 08:50 | Outpatient (BNVA) | payer OTHER, SELFPAY | PROVIDERS: PCP Internal Medicine; Visit Provider Surgery | DX: R14.0 Abdominal distension (gaseous) (principal); K62.5 Hemorrhage of anus and rectum | CPT/HCPCS: 99212 ==

== ENCOUNTER 2023-07-03 09:15 | Outpatient (AMB) | payer OTHER, SELFPAY ==
[2023-07-03 09:34] VITALS: BP 120/80; PULSE 58; BMI 33.7
--- NOTE | 2023-07-03 09:34 | MHC.OFFVIS ---
Vital Signs 07/03/23 09:34 Height 5 ft 4 in Weight 196 lb 3.382 oz BMI 33.7 BP 120/80 Blood Pressure Location Lt brachial Position Sitting Pulse 58 Intake Visit Reasons: follow up stress/echo Intake Note: Follow-up with stress and echo results Internal Control Analyst Required: No Allergies Iodinated Contrast Media [CONTRAST, IV] Allergy (Severe, Verified 06/13/23 09:10) HIVES cimetidine Adverse Reaction (Severe, Verified 06/13/23 09:10) VOMITING, nausea Medication List - Last Reconciled 07/03/23 by Edwin Nina MD amlodipine 5 mg PO DAILY aspirin (Adult Aspirin Regimen) 81 mg PO DAILY atorvastatin 80 mg PO DAILY famotidine 20 mg PO BID ibuprofen 600 mg PO Q6H PRN lisinopril 10 mg PO DAILY metoprolol tartrate 50 mg PO BID HPI Comments Details: Logan returns for follow-up. He has a history of coronary disease. To recall, in 2019, he presented to [facility] with central chest pain. At that time, he also had very high blood pressures. Then sent to [facility] as there was a concern for ST-elevation in the inferior leads. Underwent cardiac catheterization. Subsequently found to have in-stent restenoses of distal RCA stent that was originally placed in 2008 or so. He states he has been getting chest pains off and on. They are somewhat atypical as they are brief but he states they are bothersome. 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 According new, it feels like his original cardiac pains. [facility] Medical History (Updated 06/13/23 @ 09:37 by Nicho Garcia MD) Abdominal bloating Nicotine dependence, cigarettes, uncomplicated GERD (gastroesophageal reflux disease) ANETTE (obstructive sleep apnea) Essential hypertension Atherosclerotic cardiovascular disease Pre-diabetes Hypercholesteremia Hypertension Surgical History History of left inguinal hernia repair History of retained foreign body fully removed History of repair of right rotator cuff History of colonoscopy History of lymph node biopsy History of hemorrhoidectomy History of heart artery stent Family History Father History of heart disease Mother History of heart disease Social History Are you a primary memory care program resident to a significant other at home: No Do you presently have visiting nurse or other home services: No Alcohol intake: current Alcohol intake frequency: holidays/special occasions only Patient Tobacco Use Status: Current everyday Tobacco user Tobacco use type: Cigarette Cigarette Packs Per Day: 0.5 Years Smoked: (onset 17yo, 1/2ppd x 45yrs, 20pyh) Current occupational status: unemployed Current occupation: Right Handed Review of Systems Const Denies chills, Denies fatigue, Denies fever(s), Denies frequent falls, Denies weakness, Denies weight gain and Denies weight loss ENT Denies dizziness Card Denies chest pain, Denies leg edema, Denies lightheadedness, Denies palpitations, Denies dyspnea, Denies dyspnea on exertion, Denies orthopnea and Denies other (loss of consciousness) Resp Denies cough, Denies dyspnea and Denies dyspnea on exertion GI Denies hematochezia and Denies change in stool character Musc Denies abnormal gait, Denies muscle weakness, Denies numbness, Denies radiating pain into limb and Denies tingling Neuro Denies abnormal gait, Denies dizziness, Denies frequent falls, Denies numbness, Denies tingling and Denies weakness Endo Denies fatigue and Denies palpitations Physical Exam Vital Signs: Last Vital Signs Pulse 58 07/03/23 09:34 BP 120/80 07/03/23 09:34 BMI result Body Mass Index 33.7 Const General: comfortable and no acute distress Orientation/consciousness: patient oriented x3 HEENT Other: Unremarkable Head: Yes normal to inspection Neck Neck: Yes normal visual inspection Chest Chest palpation & inspection: normal inspection of the chest Resp Auscultation: clear to auscultation bilaterally Cardio Palpation: normal PMI Heart sounds: S1 normal heart sound present, S2 normal heart sound present, no gallops, no murmurs and no rubs GI Palpation (GI): Soft to palpation Back/Spine/Pelvis Other: unremarkable Skin General skin exam: no rashes or lesions noted Neuro General: patient oriented x3 Extrem General: Yes normal to inspection Psych Mental Status: mental status grossly normal Assessment & Plan Assessment & Plan (1) Atherosclerotic cardiovascular disease: Code(s): I25.10 - Atherosclerotic heart disease of [place] coronary artery without angina pectoris Category: Medical (2) Essential hypertension: Code(s): I10 - Essential (primary) hypertension Category: Medical Plan In the recent echocardiogram, LVEF is 60-65%. Severe left ventricular hypertrophy. Mild posterior mitral leaflet prolapse with mild mitral regurgitation. Myocardial perfusion imaging study shows mild intensity lateral wall ischemia in the circumflex distribution. He is getting some chest pains which according to him remind him of prior cardiac pains but sounds somewhat atypical. We will proceed with a diagnostic catheterization further evaluation. Patient is agreeable. For medications, remains on aspirin, high-dose statins. Blood pressure seems to be controlled on beta-blockers/lisinopril/amlodipine. Last LDL was 156 mg/dL. Need to recheck. Triglycerides were also high. Will follow-up after catheterization. Orders: Orders LDL Cholesterol Direct Today E78.2 - Mixed hyperlipidemia, I25.10 - Atherosclerotic heart disease of [place] coronary artery without angina pectoris Cardiac Cath LT Diagnostic Today I25.10 - Atherosclerotic heart disease of [place] coronary artery without angina pectoris Basic Metabolic Panel Today I25.10 - Atherosclerotic heart disease of [place] coronary artery without angina pectoris Lipid Panel Today E78.5 - Hyperlipidemia, unspecified, I25.10 - Atherosclerotic heart disease of [place] coronary artery without angina pectoris Complete Blood Count no Diff Today I25.10 - Atherosclerotic heart disease of [place] coronary artery without angina pectoris Prothrombin Time INR Today I25.10 - Atherosclerotic heart disease of [place] coronary artery without angina pectoris Referrals Pulmonary Medicine Referral G47.9 - Sleep disorder, unspecified Coding Level of Care Code Est Pt Level 4 (45441) Diagnoses Atherosclerotic cardiovascular disease I25.10 Essential hypertension I10
== END 2023-07-03 10:12 | disposition home or self-care (01) ==
PROVIDERS: PCP Internal Medicine; Visit Provider Internal Medicine
DX: I25.10 Atherosclerotic heart disease of native coronary artery without angina pectoris (principal); I10 Essential (primary) hypertension
CPT/HCPCS: 99214

== ENCOUNTER → 2023-07-03 09:15 | Outpatient (BNVA) | payer OTHER, SELFPAY | PROVIDERS: PCP Internal Medicine; Visit Provider Internal Medicine | DX: I25.10 Atherosclerotic heart disease of native coronary artery without angina pectoris (principal); I10 Essential (primary) hypertension; E78.2 Mixed hyperlipidemia; G47.9 Sleep disorder, unspecified | CPT/HCPCS: 99212 ==

== ENCOUNTER 2023-07-05 13:35 | Outpatient (AMB) | payer OTHER, SELFPAY ==
--- NOTE | 2023-07-05 13:36 | A.OFFVIS_ITS ---
Vital Signs 07/05/23 13:37 Height 5 ft 4 in Weight 191 lb 12.835 oz BMI 32.9 BP 147/90 H Blood Pressure Location Lt brachial Position Sitting Pulse 72 Intake Visit Reasons: GI bloating Intake Note: Logan presents in the office as a new patient for GI bloating. CC: He is having bloating - states that when he eats that is his only concern. He states that he is also having bleeding. It happened yesterday and happens 1-2 times in a month. [employer] Required: No Allergies Iodinated Contrast Media [CONTRAST, IV] Allergy (Severe, Verified 07/05/23 13:40) HIVES cimetidine Adverse Reaction (Severe, Verified 07/05/23 13:40) VOMITING, nausea HPI Comments Details: 63y.o M with hx of CAD, LVH, hemorrhoidectomy who is here for GI issues as below. Pt reports that for almost 3 years has been noticing increased abd bloating and borgorygmi. With this also experiencing rectal bleeding. Says bleeding had compeltely resolved for 6 months after the hemorrhoidectomy but returned - reports has noticed fresh blood MO even without passing a BM. Does not report straining. Stool are formed but soft. No diarrhea. No fevers or chills. Weight curve is stable. 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 Fam hx: no CRC in FDRs. Last colo 2019 (Dr Vasquez) Good prep. HP polyps. Diverticulosis. Of note - pt has also been having atypical chest pains. Has known hx of LVH and atherosclerotic CAD - slotted for diagnostic cath through Dr Nina. [facility] Medical History (Updated 07/05/23 @ 14:11 by Lauryn Valdivia MD) Abdominal bloating Nicotine dependence, cigarettes, uncomplicated GERD (gastroesophageal reflux disease) ANETTE (obstructive sleep apnea) Essential hypertension Atherosclerotic cardiovascular disease Pre-diabetes Hypercholesteremia Hypertension Surgical History History of left inguinal hernia repair History of retained foreign body fully removed History of repair of right rotator cuff History of colonoscopy History of lymph node biopsy History of hemorrhoidectomy History of heart artery stent Family History Father History of heart disease Mother History of heart disease Social History Are you a primary physician locums urgent care to a significant other at home: No Do you presently have visiting nurse or other home services: No Alcohol intake: current Alcohol intake frequency: holidays/special occasions only Patient Tobacco Use Status: Current everyday Tobacco user Tobacco use type: Cigarette Cigarette Packs Per Day: 0.5 Years Smoked: (onset 17yo, 1/2ppd x 45yrs, 20pyh) Current occupational status: unemployed Current occupation: Right Handed Review of Systems Const All systems reviewed & are unremarkable except as noted in HPI and below Physical Exam Vital Signs: Last Vital Signs Pulse 72 07/05/23 13:37 BP 147/90 H 07/05/23 13:37 BMI result Body Mass Index 32.9 Gen appear: NAD HEENT: nonicteric, Resp: no overt resp distress Abd: soft, nontender, nondistended Ext: no peripheral edema Neuro: A/Ox3, noted to move all extremities spontaneously Psych: interacting appropriately Assessment & Plan Assessment & Plan (1) Abdominal bloating: Code(s): R14.0 - Abdominal distension (gaseous) Category: Medical (2) Atherosclerotic cardiovascular disease: Code(s): I25.10 - Atherosclerotic heart disease of [place] coronary artery without angina pectoris Category: Medical (3) LVH (left ventricular hypertrophy): Code(s): I51.7 - Cardiomegaly Category: Medical (4) Hemorrhoids: Code(s): K64.9 - Unspecified hemorrhoids Category: Medical (5) Bright red rectal bleeding: Code(s): K62.5 - Hemorrhage of anus and rectum Category: Medical Plan Rectal bleeding: Appears to be likely from hemorrhoids - risk factors appear to be lifting heavy weights up to 100lbs. However given other lower GI sx will set him up for diagnostic colo to r/o colitis, SURS, etc. This will need to be brandon after cardiac work up completed. PEG prep and instrctions reviewed. Pt aware that will be done on elective basis. In the meantime, advised increased fiber intake Sitz baths Anusol supp Follow up after colo Medications: New peg 3350-electrolytes 236-22.74-6.74 -5.86 gram (Golytely) as per split prep instructions, until fecal effluent is clear 240 mL PO Q10M 4,000 mL 0RF colonoscopy hydrocortisone acetate (Anusol-HC) 25 mg MO BEDTIME 10 days 12 ea 0RF hemorrhoids Coding Level of Care Code New Pt Level 4 (18663) Diagnoses Abdominal bloating R14.0 Atherosclerotic cardiovascular disease I25.10 LVH (left ventricular hypertrophy) I51.7 Hemorrhoids K64.9 Bright red rectal bleeding K62.5
[2023-07-05 13:37] VITALS: BP 147/90; PULSE 72; BMI 32.9
== END 2023-07-05 14:23 | disposition home or self-care (01) ==
PROVIDERS: PCP Internal Medicine; Visit Provider Internal Medicine
DX: R14.0 Abdominal distension (gaseous) (principal); I25.10 Atherosclerotic heart disease of native coronary artery without angina pectoris; I51.7 Cardiomegaly; K64.9 Unspecified hemorrhoids; K62.5 Hemorrhage of anus and rectum
CPT/HCPCS: 99204

== ENCOUNTER → 2023-07-05 13:35 | Outpatient (BNVA) | payer OTHER, SELFPAY | PROVIDERS: PCP Internal Medicine; Visit Provider Internal Medicine | DX: K62.5 Hemorrhage of anus and rectum (principal); R14.0 Abdominal distension (gaseous); K64.9 Unspecified hemorrhoids; I25.10 Atherosclerotic heart disease of native coronary artery without angina pectoris; I51.7 Cardiomegaly | CPT/HCPCS: 99202 ==

== ENCOUNTER 2023-07-11 10:55 | Outpatient (REF) | payer OTHER, SELFPAY ==
[2023-07-11 12:00] LABS: Hematocrit 40.5 % (42.0-52.0); Hemoglobin 14.1 g/dl (14.0-18.0); Mean Corpuscular HGB Conc 34.8 g/dl (31.0-36.0); Mean Corpuscular Hemoglobin 35.1 pg (27.0-33.0); Mean Corpuscular Volume 100.7 fL (80.0-98.0); Mean Platelet Volume 9.6 fL (9.4-12.4); Platelet Count 340 X10*3/uL (160-400); Red Blood Count 4.02 X10*6/uL (4.60-5.80); Red Cell Distribution Width 13.1 % (11.0-16.0); White Blood Count 7.7 X10*3/uL (4.8-10.8)
[2023-07-11 12:07] LABS: Prothrombin Time 12.2 SEC (11.1-13.3)
[2023-07-11 12:40] LABS: Anion Gap 12 (12-20); Blood Urea Nitrogen 12 mg/dL (9-16); Calcium 10.1 mg/dL (8.4-10.2); Carbon Dioxide 25 mmol/L (22-29); Chloride 108 mmol/L (96-108); Cholesterol 159 mg/dL (<200); Estimated Glomerular Filt Rate > 60; Glucose Random 100 mg/dL (60-115); HDL Cholesterol 36 mg/dL (>40); LDL Cholesterol Calculated 108 mg/dL (<100); Sodium 141 mmol/L (135-145); Triglycerides 78 mg/dL (<150)
[2023-07-12 10:03] LABS: LDL Cholesterol Direct 97 mg/dL (<100)
== END 2023-07-11 10:56 | disposition home or self-care (01) ==
LOC: HO.LAB 10:55
PROVIDERS: PCP Internal Medicine; Visit Provider Internal Medicine
DX: E78.5 Hyperlipidemia, unspecified (principal); I25.10 Atherosclerotic heart disease of native coronary artery without angina pectoris; E78.2 Mixed hyperlipidemia
CPT/HCPCS: 36415; 80048; 80061; 83721; 85027; 85610

== ENCOUNTER → 2023-08-06 23:59 | Outpatient (BNV) | payer OTHER, SELFPAY | PROVIDERS: PCP Internal Medicine; Visit Provider Internal Medicine Cardiovascular Disease | DX: R93.1 Abnormal findings on diagnostic imaging of heart and coronary circulation (principal); I42.9 Cardiomyopathy, unspecified; I50.20 Unspecified systolic (congestive) heart failure | CPT/HCPCS: 93458; 99152 ==

== ENCOUNTER 2023-08-13 13:26 | Outpatient (AMB) | payer OTHER, SELFPAY ==
[2023-08-13 13:29] VITALS: BP 142/86; PULSE 66; O2SAT 98; BMI 32.2
--- NOTE | 2023-08-13 13:29 | A.OFFVIS_ITS ---
Vital Signs 08/13/23 13:29 Height 5 ft 4 in Weight 187 lb 6.287 oz BMI 32.2 BP 142/86 H Blood Pressure Location Rt brachial Position Sitting Pulse 66 Pulse Source Doppler Pulse Oximetry (%) 98 Oxygen Delivery Method Room Air Intake Visit Reasons: sleep apnea Allergies Iodinated Contrast Media [CONTRAST, IV] Allergy (Severe, Verified 08/13/23 13:32) HIVES cimetidine Adverse Reaction (Severe, Verified 08/13/23 13:32) VOMITING, nausea HPI HPI sleep apnea: Details: 63-year-old gentleman, active 25+ pack-year smoker, with underlying CAD followed by Cardiology, also prior history of ANETTE currently not on CPAP referred for evaluation management of his pulmonary and sleep concerns. Patient states that he does have some dyspnea on exertion and he has currently on no bronchodilator therapy. He also complains of unrestful sleep and snoring. He is interested in retrying CPAP therapy. 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 He denies family history of lung disease. [facility] Medical History (Updated 08/13/23 @ 13:49 by Kapil Joseph MD) Abdominal bloating Nicotine dependence, cigarettes, uncomplicated GERD (gastroesophageal reflux disease) ANETTE (obstructive sleep apnea) Essential hypertension Atherosclerotic cardiovascular disease Pre-diabetes Hypercholesteremia Hypertension Surgical History History of left inguinal hernia repair History of retained foreign body fully removed History of repair of right rotator cuff History of colonoscopy History of lymph node biopsy History of hemorrhoidectomy History of heart artery stent Family History Father History of heart disease Mother History of heart disease Social History Are you a primary point of care specialist to a significant other at home: No Do you presently have visiting nurse or other home services: No Alcohol intake: current Alcohol intake frequency: holidays/special occasions only Patient Tobacco Use Status: Current everyday Tobacco user Tobacco use type: Cigarette Cigarette Packs Per Day: 0.5 Years Smoked: (onset 17yo, 1/2ppd x 45yrs, 20pyh) Current occupational status: unemployed Current occupation: Right Handed Review of Systems Const Denies daytime sleepiness, Denies excessive sweating, Reports fatigue, Denies fever(s), Denies lethargy, Denies malaise, Denies night sweats, Reports snoring and Denies weight loss Eyes Denies blurry vision and Denies itchy eyes ENT Denies nasal congestion, Denies post nasal drip, Denies sinus pain, Denies sinus pressure and Denies other ( Thrush) Card Denies chest pain, Denies pedal edema, Denies dyspnea, Reports dyspnea on exertion, Denies orthopnea and Denies paroxysmal nocturnal dyspnea Resp Denies cough, Denies hemoptysis, Denies excessive phlegm production, Denies dyspnea, Reports dyspnea on exertion, Reports snoring and Denies wheezing GI Denies abdominal pain and Denies heartburn Musc Denies myalgias, Denies arthralgias and Denies joint swelling Skin/Breast Denies rash Neuro Denies memory loss and Denies seizure-like activity Psych Denies abnormal sleep pattern, Denies anxiety and Denies memory loss Endo Denies excessive sweating, Reports fatigue and Denies heat intolerance Cal/Lymph Denies easy bruising Aller/Immun Denies itchy eyes, Denies seasonal rhinorrhea and Denies wheezing Physical Exam Vital Signs: Last Vital Signs Pulse 66 08/13/23 13:29 BP 142/86 H 08/13/23 13:29 Pulse Ox 98 08/13/23 13:29 Oxygen Delivery Method Room Air 08/13/23 13:29 BMI result Body Mass Index 32.2 Const General: no acute distress and alert Nutritional Appearance: not obese Orientation/consciousness: Other orientation findings ( oriented) HEENT Head: Yes atraumatic Eyes General: appearance normal, both eyes and all related structures Sclerae: sclerae normal EOM: EOMs intact bilaterally Neck Neck: Yes supple Lymphatic: no lymphadenopathy noted Resp Effort & Inspection: normal respiratory effort and no use of accessory muscles Auscultation: clear to auscultation bilaterally Cardio Rate: regular rate Rhythm: regular rhythm Heart sounds: no gallops, no murmurs and no rubs Skin General skin exam: other ( warm) Extrem General: No clubbing, No cyanosis and No edema Assessment & Plan Assessment & Plan (1) ANETTE (obstructive sleep apnea): Code(s): G47.33 - Obstructive sleep apnea (adult) (pediatric) Category: Medical Plan: Unrestful sleep, snoring, daytime sleepiness. [place] Sleepiness Scale score of 15. Will obtain home sleep study. (2) COPD (chronic obstructive pulmonary disease): Code(s): J44.9 - Chronic obstructive pulmonary disease, unspecified Category: Medical Plan: Likely underlying COPD of unclear severity. Will start on empiric Anoro and out obtain full PFT. (3) Nicotine dependence, cigarettes, uncomplicated: Comment: (current smoker - onset 17yo, 1/2ppd x 45yrs, now 1/4ppd - 20pyh) Code(s): F17.210 - Nicotine dependence, cigarettes, uncomplicated Category: Medical Plan: Continue yearly lung cancer screening CT chest, next in October of 2023. Orders: Orders PFT pulmonary function test Today J44.9 - Chronic obstructive pulmonary disease, unspecified RT home sleep study Today G47.33 - Obstructive sleep apnea (adult) (pediatric) CT lung screening 10/13/23 F17.210 - Nicotine dependence, cigarettes, uncomplicated Medications: New umeclidinium-vilanterol 62.5-25 mcg/actuation (Anoro Ellipta) 1 inh inhalation DAILY 1 inhaler 6RF 30 days Coding Level of Care Code New Pt Level 4 (03403) Diagnoses ANETTE (obstructive sleep apnea) G47.33 COPD (chronic obstructive pulmonary disease) J44.9 Nicotine dependence, cigarettes, uncomplicated F17.210
== END 2023-08-13 13:51 | disposition home or self-care (01) ==
PROVIDERS: PCP Internal Medicine; Referring Provider Internal Medicine; Visit Provider Internal Medicine Pulmonary Disease
DX: G47.33 Obstructive sleep apnea (adult) (pediatric) (principal); J44.9 Chronic obstructive pulmonary disease, unspecified; F17.210 Nicotine dependence, cigarettes, uncomplicated
CPT/HCPCS: 99204

== ENCOUNTER → 2023-08-13 13:26 | Outpatient (BNVA) | payer OTHER, SELFPAY | PROVIDERS: PCP Internal Medicine; Referring Provider Internal Medicine; Visit Provider Internal Medicine Pulmonary Disease | DX: J44.9 Chronic obstructive pulmonary disease, unspecified (principal); G47.33 Obstructive sleep apnea (adult) (pediatric); F17.210 Nicotine dependence, cigarettes, uncomplicated | CPT/HCPCS: 99202 ==

== ENCOUNTER 2023-08-20 14:50 | Outpatient (AMB) | payer OTHER, SELFPAY ==
[2023-08-20 15:27] VITALS: BP 120/68; PULSE 63; BMI 31.8
--- NOTE | 2023-08-20 15:27 | MHC.OFFVIS ---
Vital Signs 08/20/23 15:27 Height 5 ft 4 in Weight 185 lb 3.013 oz BMI 31.8 BP 120/68 Blood Pressure Location Lt brachial Position Sitting Pulse 63 Pulse Source Pulse Oximeter Intake Visit Reasons: 2 wk s/p cath T[employer]apper Required: No Allergies Iodinated Contrast Media [CONTRAST, IV] Allergy (Severe, Verified 08/13/23 13:32) HIVES cimetidine Adverse Reaction (Severe, Verified 08/13/23 13:32) VOMITING, nausea Medication List - Last Reconciled 08/23/23 by Leigh Le NP amlodipine 10 mg PO DAILY aspirin (Adult Aspirin Regimen) 81 mg PO DAILY atorvastatin 80 mg PO DAILY diphenhydramine HCl (Benadryl) 25 mg PO DIRECTED ezetimibe 10 mg PO DAILY famotidine (Pepcid) 20 mg PO DIRECTED hydrocortisone acetate (Anusol-HC) 25 mg HI BEDTIME 10 days lisinopril 10 mg PO DAILY metoprolol tartrate 50 mg PO BID peg 3350-electrolytes 236-22.74-6.74 -5.86 gram (Golytely) 240 mL PO Q10M prednisone 20 mg PO DIRECTED umeclidinium-vilanterol 62.5-25 mcg/actuation (Anoro Ellipta) 1 inh inhalation DAILY 30 days HPI Comments Details: 63-year-old male presnets today for a follow-up. He has a history of stents and ANETTE without CPAP use. First was in around 2007 and then had in-stent restenosis of distal RCA. He denies chest pains, dizziness, shortness of breath, swelling, fever, chills, or orthopnea. He drinks about 1 cup of coffee a day and still smokes cigarettes but has reduced. He is down to 6 per day. He states he is not always compliant with the Zetia. Systolic blood pressures at home are typically in the 130s. [facility] Medical History (Updated 08/13/23 @ 13:49 by Kapil Joseph MD) Abdominal bloating Nicotine dependence, cigarettes, uncomplicated GERD (gastroesophageal reflux disease) ANETTE (obstructive sleep apnea) Essential hypertension Atherosclerotic cardiovascular disease Pre-diabetes Hypercholesteremia Hypertension Surgical History (Updated 08/22/23 @ 09:13 by Leigh Le NP) S/P cardiac catheterization History of left inguinal hernia repair History of retained foreign body fully removed History of repair of right rotator cuff History of colonoscopy History of lymph node biopsy History of hemorrhoidectomy History of heart artery stent Family History Father History of heart disease Mother History of heart disease Social History Are you a primary day care home provider to a significant other at home: No Do you presently have visiting nurse or other home services: No Alcohol intake: current Alcohol intake frequency: holidays/special occasions only Patient Tobacco Use Status: Current everyday Tobacco user Tobacco use type: Cigarette Cigarette Packs Per Day: 0.5 Years Smoked: (onset 17yo, 1/2ppd x 45yrs, 20pyh) Current occupational status: unemployed Current occupation: Right Handed Review of Systems Const Denies weakness ENT Denies dizziness Card Denies chest pain, Denies chest pain with activity, Denies syncope, Denies rapid heart rate, Denies pedal edema, Denies edema, Denies leg edema, Denies lightheadedness, Denies palpitations, Denies dyspnea, Denies dyspnea on exertion and Denies orthopnea Resp Denies cough, Denies dyspnea and Denies dyspnea on exertion GI Denies hematochezia and Denies change in stool character Musc Denies abnormal gait, Denies muscle cramps, Denies muscle weakness, Denies numbness, Denies radiating pain into limb and Denies tingling Neuro Denies abnormal gait, Denies dizziness, Denies syncope, Denies numbness, Denies tingling and Denies weakness Endo Denies palpitations Physical Exam Vital Signs: Last Vital Signs Pulse 63 08/20/23 15:27 BP 120/68 08/20/23 15:27 BMI result Body Mass Index 31.8 Const General: healthy appearing and no acute distress Orientation/consciousness: patient oriented x3 HEENT Head: Yes normal to inspection Eyes General: appearance normal, both eyes and all related structures Neck Neck: Yes normal visual inspection Chest Chest palpation & inspection: normal inspection of the chest Resp Effort & Inspection: normal respiratory effort Auscultation: clear to auscultation bilaterally Cardio Jugular venous distension: no JVD Palpation: normal PMI Rate: regular rate Rhythm: regular rhythm Heart sounds: S1 normal heart sound present, S2 normal heart sound present, no click, no gallops, no murmurs and no rubs GI Inspection: Yes normal to inspection Palpation (GI): Soft to palpation Skin General skin exam: no rashes or lesions noted Neuro General: patient oriented x3 Extrem Other: Right radial access. No odor, drainage, swelling, or tenderness. General: Yes normal to inspection Psych Appearance: grossly normal Assessment & Plan Assessment & Plan (1) Nicotine dependence, cigarettes, uncomplicated: Comment: (current smoker - onset 17yo, 1/2ppd x 45yrs, now 1/4ppd - 20pyh) Code(s): F17.210 - Nicotine dependence, cigarettes, uncomplicated Category: Medical (2) S/P cardiac catheterization: Comment: 08/06/[address] Milan. Cardiac Arteries and Lesion Findings LMCA: Mild disease distal left main. LAD: Minimal luminal irregularities. LCx: Mild luminal irregularities (<30%). RCA: Patent distal right coronary artery stent.There is a previous stent on Dist RCA Distal subsection. There is a previous stent on Dist RCA Distal subsection. Code(s): Z98.890 - Other specified postprocedural states Category: Surgical Plan Cardiac catherization showing no new stenosis / patent stents. Continue aspirin 81mg, blood pressure control, heart healthy diet, exercise, and cholesterol medications. He has not been consitent with Zetia. Educated on compliance importance and recheck cholesterol in 3 months. Log blood pressure and bring to next appointment. Right radial site is healing appropriately. Orders: Orders Lipid Panel 08/20/23 I25.10 - Atherosclerotic heart disease of [place] coronary artery without angina pectoris Basic Metabolic Panel 08/20/23 I25.10 - Atherosclerotic heart disease of [place] coronary artery without angina pectoris Coding Level of Care Code Est Pt Level 3 (82953) Diagnoses Nicotine dependence, cigarettes, uncomplicated F17.210 S/P cardiac catheterization Z98.890
== END 2023-08-20 15:45 | disposition home or self-care (01) ==
PROVIDERS: PCP Internal Medicine; Visit Provider Nurse Practitioner
DX: F17.210 Nicotine dependence, cigarettes, uncomplicated (principal); Z98.890 Other specified postprocedural states
CPT/HCPCS: 99213

== ENCOUNTER → 2023-08-20 14:50 | Outpatient (BNVA) | payer OTHER, SELFPAY | PROVIDERS: PCP Internal Medicine; Visit Provider Nurse Practitioner | DX: I25.10 Atherosclerotic heart disease of native coronary artery without angina pectoris (principal); I10 Essential (primary) hypertension; G47.33 Obstructive sleep apnea (adult) (pediatric); F17.210 Nicotine dependence, cigarettes, uncomplicated; Z95.5 Presence of coronary angioplasty implant and graft | CPT/HCPCS: 99212 ==

== ENCOUNTER → 2023-09-30 15:21 | Outpatient (BNVA) | payer OTHER, SELFPAY | PROVIDERS: PCP Internal Medicine; Visit Provider Internal Medicine Pulmonary Disease ==

== ENCOUNTER → 2023-10-01 13:16 | Outpatient (REF) | payer OTHER, SELFPAY | LOC: HO.SL 13:16 | PROVIDERS: PCP Internal Medicine; Visit Provider Internal Medicine Pulmonary Disease | DX: G47.33 Obstructive sleep apnea (adult) (pediatric) (principal) | CPT/HCPCS: 95806 ==

== ENCOUNTER → 2023-10-01 13:52 | Outpatient (BNV) | payer OTHER, SELFPAY | PROVIDERS: PCP Internal Medicine; Visit Provider Internal Medicine | DX: G47.33 Obstructive sleep apnea (adult) (pediatric) (principal) | CPT/HCPCS: 95806 ==

== ENCOUNTER 2024-02-25 13:40 | Outpatient (AMB) | payer MEDICAID, SELFPAY ==
--- NOTE | 2024-02-25 13:57 | A.OFFVIS_ITS ---
Vital Signs 02/25/24 14:01 Height 5 ft 4 in Weight 186 lb 15.232 oz BMI 32.1 BP 150/90 H Blood Pressure Location Lt brachial Position Sitting Pulse 62 Intake Visit Reasons: 6 mth f/up AC Cost Control Specialist Required: No Accompanied by: Self / Same As Patient Allergies Iodinated Contrast Media [CONTRAST, IV] Allergy (Severe, Verified 08/13/23 13:32) HIVES cimetidine Adverse Reaction (Severe, Verified 08/13/23 13:32) VOMITING, nausea Medication List - Last Reconciled 02/25/24 by Edwin Nina MD amlodipine 10 mg PO DAILY aspirin (Adult Aspirin Regimen) 81 mg PO DAILY atorvastatin 80 mg PO DAILY ezetimibe 10 mg PO DAILY famotidine (Pepcid) 20 mg PO DIRECTED lisinopril 10 mg PO DAILY metoprolol tartrate 50 mg PO BID peg 3350-electrolytes 236-22.74-6.74 -5.86 gram (Golytely) 240 mL PO Q10M HPI Comments Details: Logan returns for follow-up. To recall, in 2019, he presented to [facility] with central chest pain. At that time, he also had very high blood pressures. Sent to [facility] for concern for ST-elevation in the inferior leads. Underwent cardiac catheterization and found to have in-stent restenoses of distal RCA stent that was originally placed around 2007- s/p PCI. In prior visit, he was again complaining of chest pains but they were atypical. He underwent a repeat catheterization but no new findings. In the last few months, he states that he has stopped all his medications and he states that it is because of insurance issues. Otherwise, no specific cardiac symptoms. [facility] Medical History (Updated 11/19/23 @ 11:26 by Dominga Apple PA-C) Atherosclerotic cardiovascular disease Essential hypertension Hypercholesteremia Pre-diabetes GERD (gastroesophageal reflux disease) ANETTE (obstructive sleep apnea) Nicotine dependence, cigarettes, uncomplicated Abdominal bloating Surgical History S/P cardiac catheterization History of heart artery stent History of left inguinal hernia repair History of retained foreign body fully removed History of repair of right rotator cuff History of colonoscopy History of lymph node biopsy History of hemorrhoidectomy Family History Father History of heart disease Mother History of heart disease Social History Are you a primary primary care coordinator to a significant other at home: No Do you presently have visiting nurse or other home services: No Alcohol intake: current Alcohol intake frequency: holidays/special occasions only Patient Tobacco Use Status: Current everyday Tobacco user Tobacco use type: Cigarette Cigarette Packs Per Day: 0.5 Years Smoked: (onset 17yo, 1/2ppd x 45yrs, 20pyh) Current occupational status: unemployed Current occupation: Right Handed Review of Systems Const Denies chills, Denies fatigue, Denies fever(s), Denies weight gain and Denies weight loss ENT Denies dizziness Card Denies chest pain, Denies leg edema, Denies lightheadedness, Denies palpitations, Denies dyspnea on exertion, Denies orthopnea and Denies other Resp Denies cough and Denies dyspnea on exertion GI Denies hematochezia and Denies change in stool character Musc Denies abnormal gait, Denies muscle weakness, Denies numbness, Denies radiating pain into limb and Denies tingling Neuro Denies abnormal gait, Denies dizziness, Denies numbness and Denies tingling Endo Denies fatigue and Denies palpitations Physical Exam Vital Signs: Last Vital Signs Pulse 62 02/25/24 14:01 BP 150/90 H 02/25/24 14:01 BMI result Body Mass Index 32.1 Const General: comfortable and no acute distress Orientation/consciousness: patient oriented x3 HEENT Other: Unremarkable Head: Yes normal to inspection Neck Neck: Yes normal visual inspection Chest Chest palpation & inspection: normal inspection of the chest Resp Auscultation: clear to auscultation bilaterally Cardio Palpation: normal PMI Heart sounds: S1 normal heart sound present, S2 normal heart sound present, no gallops, no murmurs and no rubs GI Palpation (GI): Soft to palpation Back/Spine/Pelvis Other: unremarkable Skin General skin exam: no rashes or lesions noted Neuro General: patient oriented x3 Extrem General: Yes normal to inspection Psych Mental Status: mental status grossly normal Office Procedures EKG Details: EKG with sinus rhythm at 62/Min; old inferior infarct; lateral T inversions; [place] [id number]-[id number], Complete Assessment & Plan Assessment & Plan (1) Atherosclerotic cardiovascular disease: Code(s): I25.10 - Atherosclerotic heart disease of [place] coronary artery without angina pectoris Category: Medical (2) Essential hypertension: Code(s): I10 - Essential (primary) hypertension Category: Medical Plan Cardiac studies reviewed. Echocardiogram-LVEF 60-65%. Severe left ventricular hypertrophy. Mild posterior mitral leaflet prolapse with mild mitral regurgitation. Myocardial perfusion imaging study - mild intensity lateral wall ischemia in the circumflex distribution. Cardiac catheterization-07/29/2023-patent RCA stent; minimal to mild disease in the left main, LAD, circumflex. Elevated LVEDP. Overall, hypertension, stable coronary disease, noncompliance and not taking any meds at this time. Sending script for at least some of the medications including aspirin, beta- blockers, amlodipine and statins. He does not want to take the atorvastatin as that is apparently giving him side effects and hence we can try Rosuvastatin instead. Advised him to resume the meds. Also advised him to contact us PCP for rest of his meds. He agrees. Follow-up in 6 months time. Medications: New rosuvastatin 40 mg PO DAILY 90 tabs 3RF aspirin (Adult Aspirin Regimen) 81 mg PO DAILY 90 tabs 3RF amlodipine 10 mg (2 x 5 mg) PO DAILY 90 tabs 3RF Changed From metoprolol tartrate 50 mg PO BID To metoprolol tartrate 50 mg PO BID 180 tabs 3RF 90 days Coding Level of Care Code Est Pt Level 4 (45993) Diagnoses Atherosclerotic cardiovascular disease I25.10 Essential hypertension I10 CPT Codes EKG - CPT: 73683-[id number], Complete ([id number])
[2024-02-25 14:01] VITALS: BP 150/90; PULSE 62; BMI 32.1
== END 2024-02-25 14:23 | disposition home or self-care (01) ==
PROVIDERS: PCP Internal Medicine; Visit Provider Internal Medicine
DX: I25.10 Atherosclerotic heart disease of native coronary artery without angina pectoris (principal); I10 Essential (primary) hypertension
CPT/HCPCS: 93010; 99214

== ENCOUNTER → 2024-02-25 13:40 | Outpatient (BNVA) | payer MEDICAID, SELFPAY | PROVIDERS: PCP Internal Medicine; Visit Provider Internal Medicine | DX: I25.10 Atherosclerotic heart disease of native coronary artery without angina pectoris (principal); I10 Essential (primary) hypertension; R94.31 Abnormal electrocardiogram [ECG] [EKG] | CPT/HCPCS: 93005; 99212 ==

== ENCOUNTER 2024-05-07 16:00 | Outpatient (REF) | payer MEDICAID, SELFPAY ==
--- NOTE | ~2024-05-07 | CT_ITS ---
CLINICAL HISTORY: F17.210 - Nicotine dependence, cigarettes, uncomplicated CT lung cancer screening (LDCT) Comparison: 10/31/2022 Technique: Axial CT images of the chest using low-dose technique. Referring provider counseled the patient on shared decision-making for LDCT screening. Additional counseling was provided on smoking cessation. Effective radiation dose total: DLP 44.9 mGycm, CTDIvol 1.4 mGy. Findings: Lung: There are no new solid or semi solid lesions. Coronary artery calcifications: Mild Limited upper abdomen: Unremarkable Other: None Impression: Category 2: Benign appearance or behavior, continue annual screening Category 1: Normal; continue annual screening Category 2: Benign appearance or behavior, continue annual screening Category 3: Probably benign, [address] recommended Category 4A: Suspicious, [address] recommended; may consider PET/CT Category 4B: Suspicious, Additional diagnostics and/or tissue sampling recommended Category 4X: Suspicious, Additional diagnostics and/or tissue sampling recommended Category 0: Recalls (incomplete screen due to Incomplete coverage, Noise, Respiratory motion, Expiration, Obscured by acute abnormality) This document has been electronically signed by: Iggy Turner MD on 05/08/2024 08:42:45
== END 2024-05-07 16:01 | disposition home or self-care (01) ==
LOC: HO.CT 16:00
PROVIDERS: PCP Internal Medicine; Visit Provider Internal Medicine Pulmonary Disease
DX: Z12.2 Encounter for screening for malignant neoplasm of respiratory organs (principal); F17.210 Nicotine dependence, cigarettes, uncomplicated
CPT/HCPCS: 71271

== ENCOUNTER → 2024-05-07 16:06 | Outpatient (BNV) | payer MEDICAID, SELFPAY | PROVIDERS: PCP Internal Medicine; Visit Provider Specialist | DX: F17.210 Nicotine dependence, cigarettes, uncomplicated (principal) | CPT/HCPCS: 71271 ==

== ENCOUNTER 2024-06-01 09:31 | Outpatient (REF) | payer MEDICAID, SELFPAY ==
[2024-06-01 11:53] LABS: Hematocrit 43.6 % (42.0-52.0); Mean Corpuscular HGB Conc 34.4 g/dl (31.0-36.0); Mean Corpuscular Hemoglobin 34.4 pg (27.0-33.0); Mean Platelet Volume 9.6 fL (9.4-12.4); Platelet Count 274 X10*3/uL (160-400); Red Blood Count 4.36 X10*6/uL (4.60-5.80); Red Cell Distribution Width 13.1 % (11.0-16.0); White Blood Count 8.2 X10*3/uL (4.8-10.8)
[2024-06-01 12:44] LABS: Albumin Level 4.4 g/dL (3.5-5.0); Alkaline Phosphatase 108 U/L (39-117); Anion Gap 10 (12-20); Aspartate Amino Transferase 29 U/L (5-37); Bilirubin Direct 0.1 mg/dL (0.0-0.5); Bilirubin Total 0.4 mg/dL (0.0-1.0); Blood Urea Nitrogen 7 mg/dL (9-16); Calcium 9.7 mg/dL (8.4-10.2); Carbon Dioxide 28 mmol/L (22-29); Chloride 109 mmol/L (96-108); Cholesterol 223 mg/dL (<200); Estimated Glomerular Filt Rate > 60; Glucose Random 97 mg/dL (60-115); HDL Cholesterol 39 mg/dL (>40); LDL Cholesterol Calculated 150 mg/dL (<100); Potassium 4.9 mmol/L (3.3-5.1); Sodium 142 mmol/L (135-145); Total Protein 7.8 g/dL (6.5-8.0); Triglycerides 173 mg/dL (<150)
[2024-06-01 12:55] LABS: Alanine Aminotransferase 44 U/L (0-40)
[2024-06-01 13:38] LABS: Appearance Urine Clear; Color Urine Yellow; Glucose Urine UA Negative (Negative); Leukocyte Esterase Urine Negative (Negative); Nitrite Urine Negative (Negative); PH >= 9.0 (5.0-9.0); Specific Gravity - Urine 1.015 (1.005-1.025); Urine Blood Negative (Negative); Urine Ketones Negative (Negative); Urine Protein Negative (Neg-Trace)
[2024-06-07 12:14] LABS: Testosterone, Free 57 pg/mL (35.0-155.0); Testosterone, Total 393 ng/dL (250-1100)
== END 2024-06-01 09:32 | disposition home or self-care (01) ==
LOC: HO.LAB 09:31
PROVIDERS: Nurse Practitioner; PCP Internal Medicine; Visit Provider Internal Medicine
DX: I10 Essential (primary) hypertension (principal); E78.00 Pure hypercholesterolemia, unspecified; K64.9 Unspecified hemorrhoids; R14.0 Abdominal distension (gaseous); G47.33 Obstructive sleep apnea (adult) (pediatric); Z95.5 Presence of coronary angioplasty implant and graft; I25.10 Atherosclerotic heart disease of native coronary artery without angina pectoris
CPT/HCPCS: 36415; 80048; 80061; 80076; 81003; 84402; 84403; 85027; 99202

== ENCOUNTER 2024-06-01 09:31 | Outpatient (AMB) | payer MEDICAID, SELFPAY ==
[2024-06-01 09:35] VITALS: BP 130/80; PULSE 58; TEMP 36.4; O2SAT 97; BMI 33.5
--- NOTE | 2024-06-01 09:35 | A.OFFPC_ITS ---
Vital Signs 06/01/24 09:35 Height 5 ft 4 in Weight 195 lb BMI 33.5 BP 130/80 Blood Pressure Location Lt brachial Position Sitting Pulse 58 Pulse Source Pulse Oximeter Temp 97.6 F Temp Source Temporal Artery Scan Pulse Oximetry (%) 97 Oxygen Delivery Method Room Air Intake Visit Reasons: Routine Healthcare Account Manager Required: No Accompanied by: Self / Same As Patient Allergies Iodinated Contrast Media [CONTRAST, IV] Allergy (Severe, Verified 06/01/24 09:54) HIVES cimetidine Adverse Reaction (Severe, Verified 06/01/24 09:54) VOMITING, nausea Medication List - Last Reviewed 06/01/24 by CONSTANCE Chaparro aspirin (Adult Aspirin Regimen) 81 mg PO DAILY magnesium 200 mg PO DAILY metoprolol tartrate 50 mg PO BID 90 days Tobacco use date assessed: 06/01/24 Dental Screening Dental Screen Date: 06/01/24 Did you have a dental visit in the last 12 months?: Yes Did you have a dental problem in the last 6 months where you did not have access to dental care?: No PFSH Medical History (Updated 06/01/24 @ 10:27 by Gaston Jimenez MD) Hypothyroidism (acquired) Atherosclerotic cardiovascular disease Essential hypertension Hypercholesteremia Pre-diabetes GERD (gastroesophageal reflux disease) ANETTE (obstructive sleep apnea) Nicotine dependence, cigarettes, uncomplicated Abdominal bloating Surgical History (Updated 06/01/24 @ 10:28 by Gaston Jimenez MD) S/P cardiac catheterization History of heart artery stent History of left inguinal hernia repair History of retained foreign body fully removed History of repair of right rotator cuff History of colonoscopy (12/01/21) History of lymph node biopsy History of hemorrhoidectomy Family History Father History of heart disease Mother History of heart disease Social History Housing: House Are you a primary rn intensive care unit to a significant other at home: No Do you presently have visiting nurse or other home services: No Alcohol intake: current Alcohol intake frequency: holidays/special occasions only Patient Tobacco Use Status: Current everyday Tobacco user Tobacco use type: Cigarette Cigarette Packs Per Day: 0.5 Years Smoked: (onset 17yo, 1/2ppd x 45yrs, 20pyh) service: No Current occupational status: employed Current occupation: Right Handed Cognitive needs: No Hearing needs: No Vision needs: Yes (rx glasses) Questionnaire PHQ-9 Over the last 2 weeks, how often have you been bothered by any of the following problems? 1. Little interest or pleasure in doing things: not at all 2. Feeling down, depressed, or hopeless: not at all 3. Trouble falling or staying asleep, or sleeping too much: not at all 4. Feeling tired or having little energy: not at all 5. Poor appetite or overeating: not at all 6. Feeling bad about yourself - or that you are a failure or have let yourself or your family down: not at all 7. Trouble concentrating on things, such as reading the newspaper or watching television: not at all 8. Moving or speaking so slowly that other people could have noticed. Or the opposite - being so fidgety or restless that you have been moving around a lot more than usual: not at all 9. Thoughts that you would be better off or of hurting yourself in some way: not at all Total score: 0 Source: Developed by Drs. Gurjit Zamora, Shannan Adame, Juan Manuel Woodward and colleagues, with an educational lana from [employer]. Thrive Questionnaire Date Thrive assessed: 06/01/24 I am a: Patient What is your living situation today?: I have a steady place to live Within the past 12 months, did the food you bought not last and you didn't have the money to get more?: Never true Within the past 12 months, did you worry whether your food would run out before you got money to buy more?: Never true Do you have trouble paying for medicines?: No Do you have trouble getting transportation to medical appointments?: No Do you have trouble paying your heating and electricity bill?: No Do you have trouble taking care of your child, family member or friend?: No Do you have trouble with day-to-day activities such as bathing, preparing meals, shopping, managing finances, etc.?: No Are you currently unemployed and looking for a job?: No Are you interested in more education?: No Please select the resources that you would like help with: None THRIVE Score: 0 AUDIT C Alcohol Use Questionnaire (AUDIT-C) 1. How often do you have a drink containing alcohol?: Monthly or less 2. How many drinks containing alcohol do you have on a typical day when you are drinking?: 1 or 2 3. How often do you have six or more drinks on one occasion?: Never Total Score: 1 GEOVANI-7 AMB Questionnaire GEOVANI-7 Date GEOVANI - 7 assessed: 06/01/24 Feeling nervous, anxious, or on edge: 0 = Not at all Not being able to stop or control worryin = Not at all Worrying too much about different things: 0 = Not at all Trouble relaxin = Not at all Being so restless that it is hard to sit still: 0 = Not at all Becoming easily annoyed or irritable: 0 = Not at all Feeling afraid as if something awful might happen: 0 = Not at all Total GEOVANI-7 score (0-4 normal; 5-9 mild; 10-14 moderate; 15-21 severe): 0 Source: Developed by Drs. Gurjit Zamora, Shannan Adame, Juan Manuel Woodward and colleagues, with an educational lana from [employer]. Physical exam (Primary Care) Tobacco/Smoking Status: Tobacco use Status Tobacco use date assessed 06/01/24 06/01/24 09:38 Patient Tobacco Use Status Current everyday Tobacco 06/01/24 09:35 Tobacco use type Cigarette 06/01/24 09:35 PHQ-9: PHQ-9 Score PHQ-9: Total score 0 06/01/24 09:38 Thrive Assessment: Date of Thrive Assessment Date Thrive assessed 06/01/24 06/01/24 09:38 Coding Level of Care Code New Pt Level 4 (76170) Complex EM visit Add On G2211 Diagnoses Essential hypertension I10 Hypercholesteremia E78.00 History of heart artery stent Z95.5 Hemorrhoids K64.9 Abdominal bloating R14.0 ANETTE (obstructive sleep apnea) G47.33 Assessment & Plan Assessment & Plan (1) Essential hypertension: Code(s): I10 - Essential (primary) hypertension Category: Medical Plan: Blood pressure in range. BW ordered. Continue Current medications. (2) Hypercholesteremia: Code(s): E78.00 - Pure hypercholesterolemia, unspecified Category: Medical Plan: BW ordered. Continue current medications (3) History of heart artery stent: Comment: (x2 - stent of distal RCA 2007 & stent of distal RCA 04/21/18) Code(s): Z95.5 - Presence of coronary angioplasty implant and graft Category: Surgical Plan: Condition is stable (4) Hemorrhoids: Code(s): K64.9 - Unspecified hemorrhoids Category: Medical Plan: Recurrent bleeding. Surgery appt requested (5) Abdominal bloating: Code(s): R14.0 - Abdominal distension (gaseous) Category: Medical Plan: PPI added to the regimen (6) ANETTE (obstructive sleep apnea): Code(s): G47.33 - Obstructive sleep apnea (adult) (pediatric) Category: Medical Plan History of Present Illness The patient is a 64-year-old male presenting with rectal bleeding. The bleeding occurs intermittently, typically once a week, and is associated with bowel movements. There is no evidence of blood outside of these incidents. The patient previously had a colonoscopy in 2021, where a polyp was removed, followed by surgery for hemorrhoids, yet he continued to experience rectal bleeding post- surgery. He missed a follow-up colonoscopy appointment last December due to insurance issues but remains concerned about potential bleeding from medications, though there is no established link between his medication regimen and the bleeding. Social History - Employment: Works in construction; currently on layoff in the winter. - Housing: Lives with girlfriend. - Family: Children are all . - Substance use: Smokes less than half a packet of tobacco daily; consumes approximately three beers daily. Review of Systems - Cardiovascular: Reports history of coronary artery disease, with two stents placed. - Gastrointestinal: Reports intermittent rectal bleeding associated with bowel movements, history of hemorrhoids. - Social/Personal: Reports tobacco use, alcohol consumption of three beers per day. Physical Exam General: Cooperative and healthy appearing Nutritional Appearance: Well nourished Orientation/consciousness: Patient oriented x3 Limitations: No limitations Head: Normal to inspection General: Appearance normal, both eyes and all related structures Neck: Normal visual inspection Chest: Normal palpation of entire chest wall Respiratory: Normal respiratory effort Neurology: Patient oriented x3 Results Plan The patient should first see a surgeon to evaluate the hemorrhoid area since colonoscopy findings from 2021 were otherwise normal. If no issues are found, referral to a gastrointestinal specialist may be necessary to further investigate the cause of rectal bleeding. The patient is to continue cardiovascular medications, namely metoprolol and statin, because of coronary artery disease history with stenting. Smoking cessation and moderating alcohol intake are advised to avoid compounding health issues. Patient was informed and verbally consented to the use of an ambient scribe for clinic note documentation during this visit. Discussion Notes I discussed with the patient that a thorough evaluation by a surgeon is necessary to determine whether hemorrhoids are the cause of persistent rectal bleeding. I mentioned that if hemorrhoidal disease is ruled out, a referral to a gastrointestinal specialist will be considered to explore alternative causes. I advised the patient of the importance of adhering to prescribed cardiovascular medications, emphasizing the significance of statins for cholesterol management. The risks associated with smoking and excessive alcohol consumption were explained, stressing their potential impact on cardiac health. Acknowledging his cardiac history, I encouraged lifestyle modifications for health optimization. No need for medication refills was identified. Patient Instructions - Follow up with a surgeon for evaluation of the hemorrhoid area. - Continue taking all prescribed cardiovascular medications. - Do not stop statin therapy; it is important for cholesterol management. - Consider smoking cessation and reduce alcohol intake to no more than one to two beers per day. - Monitor for any changes in symptoms or increased bleeding and report promptly.
== END 2024-06-01 10:41 | disposition home or self-care (01) ==
LOC: HO.HMCHD 09:31
PROVIDERS: PCP Internal Medicine; Visit Provider Internal Medicine
DX: I10 Essential (primary) hypertension (principal); E78.00 Pure hypercholesterolemia, unspecified; Z95.5 Presence of coronary angioplasty implant and graft; K64.9 Unspecified hemorrhoids; R14.0 Abdominal distension (gaseous); G47.33 Obstructive sleep apnea (adult) (pediatric)

== ENCOUNTER 2024-06-15 08:57 | Outpatient (AMB) | payer MEDICAID, SELFPAY ==
--- NOTE | 2024-06-15 08:58 | A.OFFVIS_ITS ---
Vital Signs 06/15/24 09:04 Height 5 ft 4 in Weight 197 lb BMI 33.8 BP 196/97 H Blood Pressure Location Rt brachial Position Sitting Pulse 60 Intake Visit Reasons: unspecified hemorrhoids Intake Note: Patient referred by pcp Dr. Jimenez for hemorrhoids. Patient c/o: bleeding with some BM. Hx of hemorrhoidectomy on 12-01-2021. Software Support Engineer Required: No Accompanied by: Self / Same As Patient Allergies Iodinated Contrast Media [CONTRAST, IV] Allergy (Severe, Verified 06/15/24 09:02) HIVES cimetidine Adverse Reaction (Severe, Verified 06/15/24 09:02) VOMITING, nausea HPI Comments Details: Patient presents here because of hemorrhoidal bleeding. He had hemorrhoidectomy roughly 3 years ago for bleeding symptomatic hemorrhoids. He has now a recurrence. Patient has had colonoscopy in the distant past. He was due for colonoscopy last fall but because of insurance issues it was never performed. He otherwise tolerating his diet. He has regular bowel habits. No history of constipation or straining. Chart was reviewed and patient evaluated [facility] Medical History Hypothyroidism (acquired) Atherosclerotic cardiovascular disease Essential hypertension Hypercholesteremia Pre-diabetes GERD (gastroesophageal reflux disease) ANETTE (obstructive sleep apnea) Nicotine dependence, cigarettes, uncomplicated Abdominal bloating Surgical History S/P cardiac catheterization History of heart artery stent History of left inguinal hernia repair History of retained foreign body fully removed History of repair of right rotator cuff History of colonoscopy (12/01/21) History of lymph node biopsy History of hemorrhoidectomy Family History Father History of heart disease Mother History of heart disease Social History Housing: House Are you a primary home health care respiratory therapist to a significant other at home: No Do you presently have visiting nurse or other home services: No Alcohol intake: current Alcohol intake frequency: holidays/special occasions only Patient Tobacco Use Status: Current everyday Tobacco user Tobacco use type: Cigarette Cigarette Packs Per Day: 0.5 Years Smoked: (onset 17yo, 1/2ppd x 45yrs, 20pyh) service: No Current occupational status: employed Current occupation: Right Handed Cognitive needs: No Hearing needs: No Vision needs: Yes (rx glasses) Physical Exam Vital Signs: Last Vital Signs Pulse 60 06/15/24 09:04 BP 196/97 H 06/15/24 09:04 BMI result Body Mass Index 33.8 GI Other: Abdomen corpulent, soft, benign Anorectal exam demonstrates internal and external hemorrhoids, some which were very raw appearing, and would account for the patient's bleeding symptoms. No evidence of any fissure.. Assessment & Plan Assessment & Plan (1) Hemorrhoids: Code(s): K64.9 - Unspecified hemorrhoids Category: Surgical Plan Patient was not eager to have a repeat hemorrhoidectomy. In the meantime, he is due for colonoscopy and we will make arrangements for this. Once this has been completed, patient will follow up with me and we will reassess his hemorrhoidal issues. The meantime, he is encouraged to drink a lot of water, a roughage, stool softeners, avoid prolonged straining and sitting on the toilet. All questions answered. Patient will see me as noted above or p.r.n. Coding Level of Care Code New Pt Level 4 (18831) Diagnoses Hemorrhoids K64.9
[2024-06-15 09:04] VITALS: BP 196/97; PULSE 60; BMI 33.8
== END 2024-06-15 09:14 | disposition home or self-care (01) ==
LOC: HO.HGS 08:57
PROVIDERS: PCP Internal Medicine; Visit Provider Surgery
DX: K64.9 Unspecified hemorrhoids (principal)
CPT/HCPCS: 99204

== ENCOUNTER → 2024-06-15 08:57 | Outpatient (BNVA) | payer MEDICAID, SELFPAY | PROVIDERS: PCP Internal Medicine; Visit Provider Surgery | DX: K64.9 Unspecified hemorrhoids (principal) | CPT/HCPCS: 99202 ==

== ENCOUNTER → 2024-06-30 11:33 | Day surgery (SDC) | payer MEDICAID, SELFPAY ==
--- NOTE | 2024-06-26 09:02 | HO.ANESPROP2 ---
HPI - Anesthesia Eval Consult details Narrative: 64yo M for Colonoscopy [place] [facility] [place] s/p stent - stable for 6 month f/u at 02/2024 office visit [facility] Active Problems Active Problems: All Active Problems Hypothyroidism (acquired) (Acute) Hypercholesteremia (Acute) Atherosclerotic cardiovascular disease (Acute) S/P cardiac catheterization (Acute) History of heart artery stent (Acute) LVH (left ventricular hypertrophy) (Acute) Essential hypertension (Acute) ANETTE (obstructive sleep apnea) (Acute) COPD (chronic obstructive pulmonary disease) (Acute) Nicotine dependence, cigarettes, uncomplicated (Acute) Bright red rectal bleeding (Acute) Hemorrhoids (Acute) Abdominal bloating (Acute) Past Medical History Medical History Hypothyroidism (acquired) Atherosclerotic cardiovascular disease Essential hypertension Hypercholesteremia Pre-diabetes GERD (gastroesophageal reflux disease) ANETTE (obstructive sleep apnea) Nicotine dependence, cigarettes, uncomplicated Abdominal bloating Family History Family History Father History of heart disease Mother History of heart disease Family history of problems with anesthesia: No Surgical History Surgical History S/P cardiac catheterization History of heart artery stent History of left inguinal hernia repair History of retained foreign body fully removed History of repair of right rotator cuff History of colonoscopy (12/01/21) History of lymph node biopsy History of hemorrhoidectomy History of Problems with Anesthesia: No Social History Social History Housing: House Are you a primary healthcare or medical to a significant other at home: No Do you presently have visiting nurse or other home services: No Alcohol intake: current Alcohol intake frequency: holidays/special occasions only Patient Tobacco Use Status: Current everyday Tobacco user Tobacco use type: Cigarette Cigarette Packs Per Day: 0.5 Years Smoked: (onset 17yo, 1/2ppd x 45yrs, 20pyh) service: No Current occupational status: employed Current occupation: Right Handed Cognitive needs: No Hearing needs: No Vision needs: Yes (rx glasses) Meds Allergies Allergy/AdvReac Type Severity Reaction Status Date / Time Iodinated Contrast Media Allergy Severe HIVES Verified 06/15/24 09:02 [CONTRAST, IV] cimetidine AdvReac Severe VOMITING, Verified 06/15/24 09:02 nausea Home Medications ?Medication ?Instructions ?Recorded ?Confirmed ?Last Taken ?Type magnesium 200 mg tablet 200 mg PO DAILY 06/01/24 06/15/24 Unknown History Exam Narrative Narrative: EKG 02/2024 Details: EKG with sinus rhythm at 62/Min; old inferior infarct; lateral T inversions; normal SC and corrected QT. Echocardiogram-LVEF 60-65%. Severe left ventricular hypertrophy. Mild posterior mitral leaflet prolapse with mild mitral regurgitation. Myocardial perfusion imaging study - mild intensity lateral wall ischemia in the circumflex distribution. Cardiac catheterization-07/29/2023-patent RCA stent; minimal to mild disease in the left main, LAD, circumflex. Elevated LVEDP. Assessment and Plan Assessment Anesthesia Assessment: Chart Reviewed Final Anesthetic Review Family History of Problems with Anesthesia: No History of Problems with Anesthesia: No
== END ==
LOC: HO.SSS 11:34
PROVIDERS: PCP Internal Medicine; Visit Provider Internal Medicine
DX: K62.5 Hemorrhage of anus and rectum (principal); Z53.20 Procedure and treatment not carried out because of patient's decision for unspecified reasons; K21.9 Gastro-esophageal reflux disease without esophagitis; J44.9 Chronic obstructive pulmonary disease, unspecified; G47.33 Obstructive sleep apnea (adult) (pediatric); I25.10 Atherosclerotic heart disease of native coronary artery without angina pectoris; Z95.5 Presence of coronary angioplasty implant and graft; I10 Essential (primary) hypertension; F17.210 Nicotine dependence, cigarettes, uncomplicated; Z91.041 Radiographic dye allergy status; Z88.8 Allergy status to other drugs, medicaments and biological substances; Z79.899 Other long term (current) drug therapy

== ENCOUNTER 2025-03-09 14:24 | Outpatient (AMB) | payer OTHER, SELFPAY ==
--- NOTE | 2025-03-09 14:28 | A.OFFVIS_ITS ---
Vital Signs 03/09/25 14:29 Height 5 ft 4 in Weight 191 lb 12.835 oz BMI 32.9 BP 130/80 Blood Pressure Location Lt brachial Position Sitting Pulse 70 Pulse Source Monitor Intake Visit Reasons: fu Allergies Iodinated Contrast Media (CONTRAST, IV) Allergy (Severe, Verified 12/07/24 07:43) HIVES cimetidine Adverse Reaction (Severe, Verified 12/07/24 07:43) VOMITING, nausea Medication List - Last Reconciled 03/09/25 by Edwin Nina MD aspirin (Adult Aspirin Regimen) 81 mg PO DAILY HPI Comments Details: Logan returns for follow-up. To recall, in 2019, he [facility] with central chest pain. At that time, he also had very high blood pressures. Sent to [facility] for concern for ST-elevation in the inferior leads. Underwent cardiac catheterization and found to have in-stent restenoses of distal RCA stent that was originally placed around 2007- s/p PCI. In prior visit, he was again complaining of chest pains but they were atypical. He underwent a repeat catheterization but no new findings. During last visit, he had stopped all his medications and we had resumed some of the back. However, he again states that he has not taken any of them over the last year except for aspirin. Otherwise, he states he feels good. No exertional angina or other concerning symptoms. [facility] Medical History Hypothyroidism (acquired) Atherosclerotic cardiovascular disease Essential hypertension Hypercholesteremia Pre-diabetes GERD (gastroesophageal reflux disease) ANETTE (obstructive sleep apnea) Nicotine dependence, cigarettes, uncomplicated Abdominal bloating Surgical History S/P cardiac catheterization History of heart artery stent History of left inguinal hernia repair History of retained foreign body fully removed History of repair of right rotator cuff History of colonoscopy (03/24/18) History of lymph node biopsy History of hemorrhoidectomy Family History Father History of heart disease Mother History of heart disease Social History Housing: House Are you a primary patient care nursing assistant to a significant other at home: No Do you presently have visiting nurse or other home services: No Alcohol intake: current Alcohol intake frequency: holidays/special occasions only Patient Tobacco Use Status: Current everyday Tobacco user Tobacco use type: Cigarette Cigarette Packs Per Day: 0.5 Years Smoked: (onset 17yo, 1/2ppd x 45yrs, 20pyh) service: No Current occupational status: employed Current occupation: Right Handed Cognitive needs: No Hearing needs: No Vision needs: Yes (rx glasses) Review of Systems Const Denies weakness ENT Denies dizziness Card Denies chest pain, Denies chest pain with activity, Denies syncope, Denies rapid heart rate, Denies pedal edema, Denies edema, Reports irregular heart rhythm, Denies leg edema, Denies lightheadedness, Reports palpitations, Denies dyspnea, Denies dyspnea on exertion and Denies orthopnea Resp Denies cough, Denies dyspnea and Denies dyspnea on exertion GI Denies hematochezia and Denies change in stool character Musc Denies abnormal gait, Denies muscle cramps, Denies muscle weakness, Denies numbness, Denies radiating pain into limb and Denies tingling Neuro Denies abnormal gait, Denies dizziness, Denies syncope, Denies numbness, Denies tingling and Denies weakness Endo Reports palpitations Physical Exam Vital Signs: Last Vital Signs Pulse 70 03/09/25 14:29 BP 130/80 03/09/25 14:29 BMI result Body Mass Index 32.9 Const General: comfortable and no acute distress Orientation/consciousness: patient oriented x3 HEENT Other: Unremarkable Head: Yes normal to inspection Neck Neck: Yes normal visual inspection Chest Chest palpation & inspection: normal inspection of the chest Resp Auscultation: clear to auscultation bilaterally Cardio Palpation: normal PMI Heart sounds: S1 normal heart sound present, S2 normal heart sound present, no gallops, no murmurs and no rubs GI Palpation (GI): Soft to palpation Back/Spine/Pelvis Other: unremarkable Skin General skin exam: no rashes or lesions noted Neuro General: patient oriented x3 Extrem General: Yes normal to inspection Psych Mental Status: mental status grossly normal Office Procedures EKG Details: EKG with sinus rhythm at 70/Min; incomplete right bundle-branch block pattern; left posterior fascicular block; old inferior infarct; [place]. [id number], Complete Assessment & Plan Assessment & Plan (1) Atherosclerotic cardiovascular disease: Code(s): I25.10 - Atherosclerotic heart disease of [place] coronary artery without angina pectoris Category: Medical (2) Essential hypertension: Code(s): I10 - Essential (primary) hypertension Category: Medical (3) Noncompliance with medication regimen: Code(s): Z91.148 - Patient's other noncompliance with medication regimen for other reason Category: Medical Plan Cardiac studies reviewed. Echocardiogram 2023-LVEF 60-65%. Severe left ventricular hypertrophy. Mild posterior mitral leaflet prolapse with mild mitral regurgitation. Myocardial perfusion imaging study 05/2023- mild intensity lateral wall ischemia in the circumflex distribution. Cardiac catheterization-07/2023-patent RCA stent; minimal to mild disease in the left main, LAD, circumflex. Elevated LVEDP. Overall, hypertension, stable coronary disease, medication noncompliance. At the minimum, at least take aspirin and resume statin. We discussed about this today and he is willing. After taking the statins for 2-3 months, check lipids with LFTs. We will plan on follow up in 6 months time. Orders: Orders Liver Panel 3 Months E78.00 - Pure hypercholesterolemia, unspecified, I25.10 - Atherosclerotic heart disease of [place] coronary artery without angina pectoris Lipid Panel 3 Months E78.00 - Pure hypercholesterolemia, unspecified Medications: New rosuvastatin 40 mg PO DAILY 90 tabs 3RF Coding Level of Care Code Est Pt Level 4 (61600) Add On Problem Visit Only Diagnoses Atherosclerotic cardiovascular disease I25.10 Essential hypertension I10 Noncompliance with medication regimen Z91.148 CPT Codes EKG - CPT: 69247-[id number], Complete ([id number])
[2025-03-09 14:29] VITALS: BP 130/80; PULSE 70; BMI 32.9
--- OUTSIDE RECORDS SUMMARY | 2025-03-09 18:07 | XMS_ITS | Patient Health Record ---
Author Organization [facility] Address [address] [place] [address] Care Team Providers Care Application Release Manager Name Role Phone Duy (RETIRED) Nicho MENJIVAR Primary Care Provide r Gurjit Lujan Unavailable [phone] Allergies Allergen (clinical drug ingredient) Drug/Non Drug Allergy documented on EMR Reaction Allergy Type Onset Date Status cimetidine Tagamet HB Unknown Drug Allergy Activ e Reason For Referral No Information Medications Medication SIG (Take, Route, Frequency, Duration) Notes Start Date End Date Status Aspirin 81 81 MG Tablet Chewable 1 tablet Orally Once a day A ctive Metoprolol Tartrate 50 MG Tablet 1 tablet with food Orally Twice a day Active MiraLax (colon prep) 8.3 ounce ((238) grams mixed with Gatorade or Crystal Light orally begin at 5:00 p.m. the day before the procedure; Duration: 1 day 03/14/2018 Active Dulcolax (colon prep) 5 MG Tablet Delayed Release take at 3:00 p.m and 7:00p.m. Orally two tablets twice a day for one day; Duration: 1 day 03/14/2018 Active Immunizations Vaccine Route Administration Date Status Comme nts Influenza Unknown 03/13/2018 Refused Social History Tobacco Use: Social History Observation Description Date Details (start date - stop date) Current Smoker NA - NA Social History Drugs/Alcohol: Social Info Question Answer Notes Alcohol Screen Did you have a drink containing alcohol in the past year? Yes How often did you have a drink containing alcohol in the past year? 4 or more times a week (4 points) How many drinks did you have on a typical day when you were drinking in the past year? 5 or 6 drinks (2 points) Points 6 Interpretation Positive Tobacco Use: Social Info Question Answer Notes Tobacco Use/Smoking Patient is a current smoker How often do you smoke cigarettes? every day How many cigarettes a day do you smoke? 5 or less Additional Details Category Social Info Options Details Miscellaneous: Marital status: Occupation: Construction Section Notes: Nonsmoker; occ. alcohol Problems Problem Type SNOMED Code ICD Code Onset Dates Problem Status W/U Status Risk Notes Problem Hemorrhage of rectum and anus (891356208) Rectal bleed (K62.5) Active confirmed Plan Of Treatment Pending Test Test Name Order Date GI BIOPSY 03/24/2018 Future Test Test Name Order Date COLONOSCOPY 03/13/2018 Insurance Providers Payer Name Payer Address Payer Phone Subscriber Number Group Number Insured Name Patient Relationship to Insured Coverage Start Date Coverage End Date [facility] [address] [address] [place], [place] [id number] ANTONIA EDGE Self - patient is the insured MEDICAID OF [facility] [address] [place] [address] [id number] EDGE ANTONIA Self - patient is the insured Medical (General) History Medical History History ICD Code Hypertension Heart attack--stent 2007 Denies DM,CVA,Lung disease,renal disease He reports a neg. colonoscopy at [facility] at approx. age 51 Sleep apnea--uses a CPAP mask intermitte ntly Surgical History Surgery Date(Month/Year) Left inguinal hernia
--- OUTSIDE RECORDS SUMMARY | 2025-03-09 18:07 | XMS_ITS | Clinical Summary ---
Author Organization [facility] Address [address] [place] [address] Care Team Providers Care Minesweeping Officer Name Role Phone Unavailable Primary Care Provider Unavailabl e Social History Tobacco Use Types Packs/Day Years Used Date Smoking Tobacco: Never Assessed Sex and Gender Information Value Date Recorded Sex Assigned at Not on file Legal Sex Male 1:10 PM EDT Gender Identity Not on file Sexual Orientation Not on file Plan of Treatment Health Maintenance Due Date Last Done Comments CT Colonography 1961 Colonoscopy 1961 Colorectal Cancer Screening 1961 Depression Screening 1961 FIT DNA/Cologuard 1961 FIT 1961 FOBT 1961 HIV Screening 1961 Lipid Panel 1961 SDOH Screening 1961 Sigmoidoscopy 1961 Disability Screening 1961 Alcohol/Substance Use Screening 1973 Tobacco Screening 1973 Hepatitis C Screening 1979 DTaP/Tdap/Td Vaccines (1 - Tdap) 01/05/1980 Pneumococcal Vaccine: 50+ Ye ars (1 of 1 - PCV) 2011 Zoster Vaccines (1 of 2) 2011 COVID-19 Vaccine (1 - 2024-2 6 season) 2024 Influenza Vaccine (#1) 2024 RSV Patients and Pa tients Aged 60 years or older (1 - 1-dose 75+ series) 01/05/2036 HIB Vaccines Aged Out No longer eligi ble based on patient's age to complete this topic HPV Vaccines Aged Out No longer eligi ble based on patient's age to complete this topic Hepatitis A Vaccines Aged Out No long er eligible based on patient's age to complete this topic Hepatitis B Vaccines Aged Out No long er eligible based on patient's age to complete this topic IPV Vaccines Aged Out No longer eligi ble based on patient's age to complete this topic Meningococcal B Vaccine Aged Out No l onger eligible based on patient's age to complete this topic Meningococcal Vaccine Aged Out No adilia serena eligible based on patient's age to complete this topic RSV under 20 months Aged Out No longe r eligible based on patient's age to complete this topic Rotavirus Vaccines Aged Out No longer eligible based on patient's age to complete this topic
== END 2025-03-09 14:49 | disposition home or self-care (01) ==
LOC: HO.HCS 14:24
PROVIDERS: PCP Internal Medicine; Visit Provider Internal Medicine
DX: I25.10 Atherosclerotic heart disease of native coronary artery without angina pectoris (principal); I10 Essential (primary) hypertension; Z91.148 Patient's other noncompliance with medication regimen for other reason
CPT/HCPCS: 93010; 99214

== ENCOUNTER → 2025-03-09 14:24 | Outpatient (BNVA) | payer OTHER, SELFPAY | PROVIDERS: PCP Internal Medicine; Visit Provider Internal Medicine | DX: I25.10 Atherosclerotic heart disease of native coronary artery without angina pectoris (principal); I10 Essential (primary) hypertension; F17.210 Nicotine dependence, cigarettes, uncomplicated; Z91.148 Patient's other noncompliance with medication regimen for other reason; Z79.82 Long term (current) use of aspirin; Z79.899 Other long term (current) drug therapy | CPT/HCPCS: 93005 ==